=== PATIENT | female | born 1960 | race Caucasian/White ===

== ENCOUNTER 2017-06-17 15:45 | Emergency (ER) | payer OTHER ==
[2017-06-17 16:12] VITALS: RESP 22; TEMP 98.6
[2017-06-17] MEDS ORDERED: KETOROLAC TROMETHAMINE 30 MG/ML SOL IM ONE (17:24)
[2017-06-17] MEDS ORDERED: KETOROLAC TROMETHAMINE 30 MG/ML SOL ONE (17:26)
[2017-06-17 18:12] VITALS: BP 122/81; PULSE 74; O2SAT 98
== END 2017-06-17 18:08 | disposition home or self-care (01) | DRG 948 ==
LOC: ED 15:45
DX: R60.9 Edema, unspecified (principal); Z86.79 Personal history of other diseases of the circulatory system
CPT/HCPCS: 71010; 96372; 99282; 99283; J1885

== ENCOUNTER 2017-07-02 18:22 | Inpatient (IN) | payer OTHER ==
[2017-07-02] MEDS ORDERED: LABETALOL HYDROCHLORIDE 5 MG/ML SOL IV ONE ×2 (18:44→18:49)
[2017-07-02] MEDS ORDERED: KETOROLAC TROMETHAMINE 30 MG/ML SOL IV ONE (18:44)
[2017-07-02] MEDS ORDERED: KETOROLAC TROMETHAMINE 30 MG/ML SOL ONE (18:48)
[2017-07-02 18:49] LABS: BASOPHILS % (AUTO) 1 % (0-3); EOSINOPHILS % (AUTO) 0 % (0-9); HEMATOCRIT 38 % (35-47); MEAN CORPUSCULAR HGB CONC 33.8 gm/dl (32.0-36.0); MONOCYTES % (AUTO) 6.5 % (0-12); NEUTROPHILS % (AUTO) 86.4 % (37-80)
[2017-07-02 18:50] LABS: MEAN CORPUSCULAR VOLUME 99 fL (81-99)
[2017-07-02] MEDS ORDERED: APAP/HYDROCODONE 325/5 TAB PO ONE (18:55)
[2017-07-02 18:56] LABS: CALCIUM 8.9 mg/dl (8.5-10.1); POTASSIUM 3.6 mMol/L (3.5-5.1)
[2017-07-02] MEDS ORDERED: ONDANSETRON HCL 4 MG/2 ML SOL ONE (19:00)
[2017-07-02] MEDS ORDERED: APAP/HYDROCODONE 325/5 TAB ONE (19:00)
[2017-07-02] MEDS ORDERED: SODIUM CHLORIDE 0.9% 1000 ML SOL IV SCH (19:00)
[2017-07-02] MEDS ORDERED: ONDANSETRON HCL 4 MG/2 ML SOL IV ONE (19:04)
[2017-07-02 19:18] LABS: APPEARANCE,URINE Cloudy; BILIRUBIN,URINE NEGATIVE (NEGATIVE); COLOR,URINE Dark yellow; GLUCOSE, URINE (UA) NEGATIVE (NEGATIVE); KETONES,URINE NEGATIVE (NEGATIVE); LEUKOCYTE ESTERASE ,URINE 3+ (NEGATIVE); NITRATE,URINE POSITIVE (NEGATIVE); OCCULT BLOOD,URINE 3+ (NEG-TRACE); PH,URINE 5.5
[2017-07-02] MEDS ORDERED: CEFTRIAXONE 1 GM (PREMIX) 1 GM/50 ML SOL IV ONE ×2 (19:25→19:26)
[2017-07-02 19:27] LABS: WBC,URINE TNTC (0-5AV/HPF)
[2017-07-02] MEDS ORDERED: ACETAMINOPHEN 500 MG 500 MG TAB PO PRN (20:36)
[2017-07-02] MEDS ORDERED: [UNRECOGNIZED DRUG - OTHER] PO PRN (20:36)
[2017-07-02] MEDS ORDERED: ACETAMINOPHEN PO PRN (20:36)
[2017-07-02] MEDS ORDERED: CYCLOBENZAPRINE HYDROCHLORID 5 MG TAB PO PRN (20:36)
[2017-07-02] MEDS ORDERED: OXYCODONE HCL PO PRN (20:36)
[2017-07-02] MEDS ORDERED: HYDROMORPHONE 1 MG/ML SYRINGE ONE (21:12)
[2017-07-02] MEDS: HYDROMORPHONE 1 MG/ML SYRINGE IV PRN (21:15)
[2017-07-02] MEDS: POTASSIUM CHLORIDE 10 MEQ TER PO SCH (22:25)
[2017-07-02] MEDS: LIPASE PO SCH (22:25)
[2017-07-02] MEDS: Non-Formulary Medication MISC (Budesonide/Formoterol 160/4.5 2 PUFF) INH SCH (22:25)
[2017-07-02] MEDS: PROTEASE PO SCH (22:25)
[2017-07-02] MEDS: GABAPENTIN 300 MG CAP PO SCH (22:25)
[2017-07-02] MEDS: AMYLASE PO SCH (22:25)
[2017-07-02] MEDS: SODIUM CHLORIDE/KCL 20MEQ 1,000 ML IV SCH (22:25)
[2017-07-02] MEDS ORDERED: NICOTINE 21 MG PATCH TD SCH (22:30)
[2017-07-02] MEDS: APAP/OXYCODONE 325/5 TAB PO PRN (23:55)
[2017-07-03] MEDS: HYDROMORPHONE 1 MG/ML SYRINGE IV PRN ×2 (02:59→10:03)
[2017-07-03] MEDS: SODIUM CHLORIDE/KCL 20MEQ 1,000 ML IV SCH (03:05)
[2017-07-03] MEDS ORDERED: OMEPRAZOLE 20 MG CAPSULE PO SCH (07:00)
[2017-07-03] MEDS ORDERED: SODIUM CHLORIDE 0.9% 1000ML 1,000 ML IV ONE (07:18)
[2017-07-03] MEDS: PANTOPRAZOLE SODIUM 40 MG ECT PO SCH (07:20)
[2017-07-03] MEDS: APAP/OXYCODONE 325/5 TAB PO PRN ×3 (07:57→20:23)
[2017-07-03] MEDS: Non-Formulary Medication MISC (Budesonide/Formoterol 160/4.5 2 PUFF) INH SCH (08:15)
[2017-07-03] MEDS: TIOTROPIUM BROMIDE 18 MCG CAP INH SCH (08:16)
[2017-07-03] MEDS: LORATADINE 10 MG TAB PO SCH (08:21)
[2017-07-03] MEDS: POTASSIUM CHLORIDE 10 MEQ TER PO SCH ×2 (08:21→20:21)
[2017-07-03] MEDS: FUROSEMIDE 20 MG TAB PO SCH (08:21)
[2017-07-03] MEDS: ASPIRIN 81 MG CHEWABLE CTB PO SCH (08:21)
[2017-07-03] MEDS: GABAPENTIN 300 MG CAP PO SCH ×3 (08:21→20:22)
[2017-07-03] MEDS: LISINOPRIL 20 MG TAB PO SCH (08:22)
[2017-07-03] MEDS: LIPASE PO SCH ×4 (08:25→20:27)
[2017-07-03] MEDS: AMYLASE PO SCH ×4 (08:25→20:27)
[2017-07-03] MEDS: MONTELUKAST SODIUM 5 MG CTB PO SCH (08:25)
[2017-07-03] MEDS: PROTEASE PO SCH ×4 (08:25→20:27)
[2017-07-03 08:59] LABS: CALCIUM 7.9 mg/dl (8.5-10.1); POTASSIUM 4.5 mMol/L (3.5-5.1)
[2017-07-03 09:02] LABS: HEMATOCRIT 34 % (35-47); MEAN CORPUSCULAR HGB CONC 33.5 gm/dl (32.0-36.0)
[2017-07-03 09:04] LABS: MEAN CORPUSCULAR VOLUME 100 fL (81-99)
[2017-07-03] MEDS ORDERED: FUROSEMIDE 40 MG SOL IV SCH (09:15)
[2017-07-03 09:16] LABS: ANISOCYTOSIS SLIGHT AMT; BASOPHILS % (MANUAL) 0 % (0-3); EOSINOPHILS % (MANUAL) 0 % (0-9); LYMPHOCYTES % (MANUAL) 10 % (10-50); PLATELET MORPHOLOGY COMMENT ADEQUATE
[2017-07-03] MEDS ORDERED: ALBUTEROL/IPRATROPIUM 1 VIAL SOL INH PRN (09:16)
[2017-07-03] MEDS: BUDESONIDE/FORMOTEROL 160/4.5 AER INH SCH ×2 (09:49→20:27)
[2017-07-03] MEDS: SODIUM CHLORIDE 0.9% FLUSH 10 ML SOL IV SCH ×3 (09:50→18:03)
[2017-07-03 16:28] VITALS: RESP 22
[2017-07-03] MEDS ORDERED: SODIUM CHLORIDE 0.9% 100 ML 100 ML IV ONE (17:36)
[2017-07-03] MEDS ORDERED: CEFTRIAXONE 1 GM PDS ONE (17:36)
[2017-07-03] MEDS ORDERED: CEFTRIAXONE 1 GM PDS 1 GM in SODIUM CHLORIDE 0.9% 100 ML 100 ML IV SCH (19:00)
[2017-07-03] MEDS ORDERED: NICOTINE 21 MG PATCH TD SCH (21:00)
[2017-07-04] MEDS: SODIUM CHLORIDE 0.9% FLUSH 10 ML SOL IV SCH ×2 (03:30→10:31)
[2017-07-04] MEDS: APAP/OXYCODONE 325/5 TAB PO PRN (04:12)
[2017-07-04 07:24] LABS: CALCIUM 8.3 mg/dl (8.5-10.1); POTASSIUM 4.6 mMol/L (3.5-5.1)
[2017-07-04 07:26] LABS: HEMATOCRIT 32 % (35-47); MEAN CORPUSCULAR HGB CONC 35.3 gm/dl (32.0-36.0)
[2017-07-04 07:28] LABS: MEAN CORPUSCULAR VOLUME 100 fL (81-99)
[2017-07-04] MEDS: PANTOPRAZOLE SODIUM 40 MG ECT PO SCH (07:36)
[2017-07-04 07:53] LABS: BASOPHILS % (MANUAL) 0 % (0-3); EOSINOPHILS % (MANUAL) 3 % (0-9); LYMPHOCYTES % (MANUAL) 17 % (10-50); NORMAL RBCS NORMAL RBCS
[2017-07-04 08:01] VITALS: BP 130/88; PULSE 74; TEMP 97.5; O2SAT 95
[2017-07-04] MEDS ORDERED: KETOROLAC TROMETHAMINE 30 MG/ML SOL IV ONE (08:13)
[2017-07-04] MEDS: ASPIRIN 81 MG CHEWABLE CTB PO SCH (08:31)
[2017-07-04] MEDS: LORATADINE 10 MG TAB PO SCH (08:31)
[2017-07-04] MEDS: FUROSEMIDE 20 MG TAB PO SCH (08:31)
[2017-07-04] MEDS: POTASSIUM CHLORIDE 10 MEQ TER PO SCH (08:31)
[2017-07-04] MEDS: GABAPENTIN 300 MG CAP PO SCH (08:32)
[2017-07-04] MEDS: TIOTROPIUM BROMIDE 18 MCG CAP INH SCH (08:32)
[2017-07-04] MEDS: BUDESONIDE/FORMOTEROL 160/4.5 AER INH SCH (08:33)
[2017-07-04] MEDS: LISINOPRIL 20 MG TAB PO SCH (08:34)
[2017-07-04] MEDS: AMYLASE PO SCH (08:39)
[2017-07-04] MEDS: LIPASE PO SCH (08:39)
[2017-07-04] MEDS: PROTEASE PO SCH (08:39)
[2017-07-04] MEDS: MONTELUKAST SODIUM 5 MG CTB PO SCH (08:54)
== END 2017-07-04 11:05 | disposition home or self-care (01) | DRG 690 ==
LOC: ED 18:22 → ACUTE CARE 20:28
PROVIDERS: ADMIT Family Medicine; ATTEND Family Medicine
DX: N10 Acute pyelonephritis (principal); I50.40 Unspecified combined systolic (congestive) and diastolic (congestive) heart failure; J43.1 Panlobular emphysema
CPT/HCPCS: 36415; 71010; 80048; 81001; 85007; 85025; 85027; 87077; 87088; 87186; 93005; 94640; 96365; 96374; 96375; 99070; 99222; 99231; 99238; 99284; 99285; J0696; J1885; J1940; J2405; J7620; J1170

== ENCOUNTER 2017-08-22 15:56 | Emergency (ER) | payer OTHER ==
[2017-08-22 16:09] VITALS: RESP 20; TEMP 98.2
[2017-08-22] MEDS ORDERED: LORAZEPAM 0.5 MG TAB PO ONE (17:05)
[2017-08-22] MEDS ORDERED: THIAMINE 100 MG TAB PO ONE (17:07)
[2017-08-22] MEDS ORDERED: THIAMINE 100 MG TAB ONE (17:09)
[2017-08-22] MEDS ORDERED: LORAZEPAM 0.5 MG TAB ONE (17:09)
[2017-08-22] MEDS ORDERED: LOPERAMIDE HYDROCHLORIDE 2 MG CAP PO ONE (17:25)
[2017-08-22] MEDS ORDERED: LOPERAMIDE HYDROCHLORIDE 2 MG CAP ONE (17:26)
[2017-08-22 17:35] VITALS: BP 153/96; PULSE 78; O2SAT 99
== END 2017-08-22 17:35 | disposition home or self-care (01) | DRG 897 ==
LOC: ED 15:56
DX: F10.280 Alcohol dependence with alcohol-induced anxiety disorder (principal)
CPT/HCPCS: 99283

== ENCOUNTER 2017-12-26 05:12 | Inpatient (IN) | payer OTHER ==
[2017-12-26] MEDS ORDERED: SODIUM CHLORIDE 0.9% 1000ML 1,000 ML IV ONE (05:24)
[2017-12-26] MEDS ORDERED: ONDANSETRON HCL 4 MG/2 ML SOL IV ONE (05:25)
[2017-12-26] MEDS ORDERED: HYDROMORPHONE 1 MG/ML SYRINGE IV ONE (05:26)
[2017-12-26] MEDS ORDERED: HYDROMORPHONE 1 MG/ML SYRINGE ONE (05:28)
[2017-12-26] MEDS ORDERED: ONDANSETRON HCL 4 MG/2 ML SOL ONE (05:28)
[2017-12-26] MEDS ORDERED: THIAMINE 100 MG/ML 100 MG/ML SOL IV ONE (05:33)
[2017-12-26] MEDS ORDERED: FOLIC ACID 1 MG TAB PO ONE (05:33)
[2017-12-26] MEDS ORDERED: FOLIC ACID 1 MG TAB ONE (05:44)
[2017-12-26] MEDS ORDERED: THIAMINE 100 MG/ML 100 MG/ML SOL ONE (05:44)
[2017-12-26] MEDS ORDERED: ALBUTEROL/IPRATROPIUM 1 VIAL SOL INH ONE (05:47)
[2017-12-26] MEDS ORDERED: ALBUTEROL/IPRATROPIUM 1 VIAL SOL ONE (05:48)
[2017-12-26 05:49] LABS: BASOPHILS % (AUTO) 2 % (0-3); EOSINOPHILS % (AUTO) 2 % (0-9); HEMATOCRIT 39 % (35-47); MEAN CORPUSCULAR HGB CONC 33.7 gm/dl (32.0-36.0); MONOCYTES % (AUTO) 5.4 % (0-12); NEUTROPHILS % (AUTO) 53.9 % (37-80)
[2017-12-26] MEDS ORDERED: LORAZEPAM 2 MG/ML 10ML MDV 2 MG/ML VIAL IV ONE (05:51)
[2017-12-26] MEDS ORDERED: LORAZEPAM 2 MG/ML SOL ONE (05:51)
[2017-12-26 05:54] LABS: MEAN CORPUSCULAR VOLUME 99 fL (81-99)
[2017-12-26] MEDS: SODIUM CHLORIDE 0.9% FLUSH 10 ML SOL IV PRN ×2 (05:54→11:53)
[2017-12-26 05:59] LABS: ALBUMIN 3.4 gm/dl (3.4-5.0); CALCIUM 8.1 mg/dl (8.5-10.1); MAGNESIUM 1.5 mg/dl (1.8-2.4); POTASSIUM 4.2 mMol/L (3.5-5.1)
[2017-12-26] MEDS ORDERED: MAGNESIUM SULFATE 1 GM/2 ML SOL IV ONE (06:09)
[2017-12-26] MEDS ORDERED: MAGNESIUM SULFATE 5 GM/10 ML SOL ONE (06:15)
[2017-12-26] MEDS ORDERED: MAGNESIUM SULFATE 5 GM/10 ML SOL IV ONE (06:23)
[2017-12-26] MEDS ORDERED: SODIUM CHLORIDE 0.9% 1000ML 1,000 ML IV SCH (07:00)
[2017-12-26] MEDS ORDERED: CYCLOBENZAPRINE HYDROCHLORID 5 MG TAB PO PRN (08:18)
[2017-12-26] MEDS ORDERED: HYDROMORPHONE 1 MG/ML SYRINGE IV PRN (08:19)
[2017-12-26] MEDS ORDERED: ONDANSETRON HCL 4 MG/2 ML SOL IV PRN (08:20)
[2017-12-26] MEDS ORDERED: HYDROMORPHONE HCL 2 MG/ML SOL ONE (08:51)
[2017-12-26] MEDS ORDERED: Non-Formulary Medication MISC (Budesonide/Formoterol 160/4.5 2 PUFF) INH SCH (09:00)
[2017-12-26] MEDS ORDERED: LIPASE PO SCH (09:00)
[2017-12-26] MEDS ORDERED: VARENICLINE TARTRATE 1 MG PO SCH (09:00)
[2017-12-26] MEDS ORDERED: AMYLASE PO SCH (09:00)
[2017-12-26] MEDS ORDERED: THIAMINE HCL 100 MG PO SCH (09:00)
[2017-12-26] MEDS ORDERED: PROTEASE PO SCH (09:00)
[2017-12-26] MEDS ORDERED: VITAMIN D PO SCH (09:00)
[2017-12-26] MEDS ORDERED: CALCIUM PO SCH (09:00)
[2017-12-26] MEDS ORDERED: TIOTROPIUM BROMIDE 18 MCG CAP INH SCH (09:00)
[2017-12-26] MEDS ORDERED: MONTELUKAST SODIUM 10 MG TAB PO SCH (09:00)
[2017-12-26] MEDS ORDERED: PROMETHAZINE 25 MG PO SCH (09:00)
[2017-12-26] MEDS: LISINOPRIL 20 MG TAB PO SCH (10:24)
[2017-12-26] MEDS: ASPIRIN EC 81 MG PO SCH (10:24)
[2017-12-26] MEDS: SODIUM CHLORIDE 0.9% 1000ML 1,000 ML IV SCH ×2 (10:25→19:07)
[2017-12-26] MEDS: METOPROLOL TARTRATE 50 MG TAB PO SCH (10:25)
[2017-12-26] MEDS: ENOXAPARIN 40 MG SOL SC SCH (10:26)
[2017-12-26] MEDS: HYDROMORPHONE HCL 2 MG/ML SOL IV PRN ×3 (11:30→21:31)
[2017-12-26] MEDS ORDERED: LORAZEPAM 2 MG/ML SOL IV PRN (11:36)
[2017-12-26] MEDS: GABAPENTIN 300 MG CAP PO SCH ×2 (12:17→21:18)
[2017-12-26] MEDS: SODIUM CHLORIDE 0.9% FLUSH 10 ML SOL IV SCH ×2 (13:15→19:08)
[2017-12-26] MEDS: FOLIC ACID 1 MG TAB PO SCH (13:15)
[2017-12-26] MEDS: BUDESONIDE/FORMOTEROL 160/4.5 AER INH SCH (21:17)
[2017-12-26] MEDS: CALCIUM CARBONATE 500 MG TAB PO SCH (21:18)
[2017-12-27] MEDS: HYDROMORPHONE HCL 2 MG/ML SOL IV PRN ×4 (01:01→14:13)
[2017-12-27] MEDS: SODIUM CHLORIDE 0.9% FLUSH 10 ML SOL IV SCH ×3 (03:13→19:16)
[2017-12-27] MEDS: SODIUM CHLORIDE 0.9% 1000ML 1,000 ML IV SCH (05:07)
[2017-12-27] MEDS ORDERED: SODIUM CHLORIDE 0.9% 1000ML 1,000 ML IV SCH (07:53)
[2017-12-27 08:02] LABS: BASOPHILS % (AUTO) 1 % (0-3); EOSINOPHILS % (AUTO) 3 % (0-9); HEMATOCRIT 34 % (35-47); MEAN CORPUSCULAR HGB CONC 34.1 gm/dl (32.0-36.0)
[2017-12-27 08:04] LABS: MEAN CORPUSCULAR VOLUME 101 fL (81-99)
[2017-12-27 08:07] LABS: ALBUMIN 2.9 gm/dl (3.4-5.0); POTASSIUM 4.5 mMol/L (3.5-5.1)
[2017-12-27] MEDS: DEXTROSE/SALINE 0.45/KCL 20MEQ 1,000 ML/1,000 ML SOL IV SCH ×2 (08:15→19:11)
[2017-12-27] MEDS: ALBUTEROL NEB SOL 2.5MG/3ML 1 VIAL SOL NEB PRN ×3 (08:20→20:25)
[2017-12-27 08:26] LABS: NORMAL RBCS PRESENT
[2017-12-27] MEDS ORDERED: OMEPRAZOLE 20 MG CAPSULE PO SCH (09:00)
[2017-12-27] MEDS: CALCIUM CARBONATE 500 MG TAB PO SCH ×2 (09:14→21:02)
[2017-12-27] MEDS: GABAPENTIN 300 MG CAP PO SCH ×3 (09:14→21:02)
[2017-12-27] MEDS: ASPIRIN EC 81 MG PO SCH (09:15)
[2017-12-27] MEDS: FOLIC ACID 1 MG TAB PO SCH (09:15)
[2017-12-27] MEDS: BUDESONIDE/FORMOTEROL 160/4.5 AER INH SCH ×2 (09:17→21:02)
[2017-12-27] MEDS: METOPROLOL TARTRATE 50 MG TAB PO SCH (09:19)
[2017-12-27] MEDS: ENOXAPARIN 40 MG SOL SC SCH (09:19)
[2017-12-27] MEDS: PANTOPRAZOLE SODIUM 40 MG ECT PO SCH (09:23)
[2017-12-27] MEDS: CHOLECALCIFEROL 1,000 IU TAB PO SCH (09:24)
[2017-12-27] MEDS: THIAMINE 100 MG TAB PO SCH (09:24)
[2017-12-27] MEDS: PROMETHAZINE HCL 6.25 MG/5 ML SYRP PO SCH (09:25)
[2017-12-27] MEDS ORDERED: LORAZEPAM 0.5 MG TAB PO PRN (19:00)
[2017-12-27] MEDS ORDERED: ACETAMINOPHEN 325 MG PO PRN (20:57)
[2017-12-27] MEDS: NICOTINE 7 MG PATCH TD SCH (21:07)
[2017-12-27 23:04] LABS: BASOPHILS % (AUTO) 1 % (0-3); EOSINOPHILS % (AUTO) 4 % (0-9); HEMATOCRIT 33 % (35-47); MEAN CORPUSCULAR HGB CONC 33.2 gm/dl (32.0-36.0); MONOCYTES % (AUTO) 5.6 % (0-12); NEUTROPHILS % (AUTO) 64.1 % (37-80)
[2017-12-27 23:05] LABS: MEAN CORPUSCULAR VOLUME 101 fL (81-99)
[2017-12-27 23:07] LABS: CALCIUM 8.2 mg/dl (8.5-10.1); GLOM FILT RATE 63 mL/min (>60); POTASSIUM 4.2 mMol/L (3.5-5.1); SODIUM 134 mMol/L (136-145)
[2017-12-27] MEDS: ALBUTEROL/IPRATROPIUM 1 VIAL SOL INH PRN (23:37)
[2017-12-28] MEDS: ALBUTEROL/IPRATROPIUM 1 VIAL SOL INH PRN ×2 (03:42→08:37)
[2017-12-28] MEDS: DEXTROSE/SALINE 0.45/KCL 20MEQ 1,000 ML/1,000 ML SOL IV SCH (05:21)
[2017-12-28] MEDS: SODIUM CHLORIDE 0.9% FLUSH 10 ML SOL IV SCH ×3 (05:32→20:01)
[2017-12-28 07:04] LABS: BASOPHILS % (AUTO) 2 % (0-3); EOSINOPHILS % (AUTO) 4 % (0-9); HEMATOCRIT 32 % (35-47); MONOCYTES % (AUTO) 4.8 % (0-12); NEUTROPHILS % (AUTO) 56.7 % (37-80)
[2017-12-28 07:27] LABS: MEAN CORPUSCULAR VOLUME 99 fL (81-99); NORMAL RBCS PRESENT
[2017-12-28 07:29] LABS: ALBUMIN 2.6 gm/dl (3.4-5.0); ALT 13 IU/L (14-63); CALCIUM 8.3 mg/dl (8.5-10.1); GLOM FILT RATE 78 mL/min (>60); MAGNESIUM 1.4 mg/dl (1.8-2.4); SODIUM 136 mMol/L (136-145)
[2017-12-28] MEDS: GABAPENTIN 300 MG CAP PO SCH ×3 (08:20→20:03)
[2017-12-28] MEDS: THIAMINE 100 MG TAB PO SCH (08:20)
[2017-12-28] MEDS: PANTOPRAZOLE SODIUM 40 MG ECT PO SCH (08:21)
[2017-12-28] MEDS: ASPIRIN EC 81 MG PO SCH (08:21)
[2017-12-28] MEDS: CHOLECALCIFEROL 1,000 IU TAB PO SCH (08:21)
[2017-12-28] MEDS: FOLIC ACID 1 MG TAB PO SCH (08:21)
[2017-12-28] MEDS: CALCIUM CARBONATE 500 MG TAB PO SCH ×2 (08:21→20:03)
[2017-12-28] MEDS: PROMETHAZINE HCL 6.25 MG/5 ML SYRP PO SCH (08:22)
[2017-12-28] MEDS: BUDESONIDE/FORMOTEROL 160/4.5 AER INH SCH ×2 (08:22→20:03)
[2017-12-28] MEDS: ENOXAPARIN 40 MG SOL SC SCH (08:26)
[2017-12-28] MEDS: METOPROLOL TARTRATE 50 MG TAB PO SCH (08:26)
[2017-12-28] MEDS: APAP/OXYCODONE 325/5 TAB PO PRN ×3 (09:17→21:10)
[2017-12-28] MEDS: MAGNESIUM OXIDE 400 MG TAB PO SCH ×4 (09:18→20:05)
[2017-12-28 09:42] LABS: APPEARANCE,URINE Cloudy; BILIRUBIN,URINE NEGATIVE (NEGATIVE); COLOR,URINE Yellow; GLUCOSE, URINE (UA) NEGATIVE (NEGATIVE); KETONES,URINE NEGATIVE (NEGATIVE); LEUKOCYTE ESTERASE ,URINE 3+ (NEGATIVE); NITRATE,URINE POSITIVE (NEGATIVE); OCCULT BLOOD,URINE 3+ (NEG-TRACE)
[2017-12-28 10:05] LABS: WBC,URINE 25-30 (0-5AV/HPF)
[2017-12-28] MEDS ORDERED: SULFAMETHOXAZOLE/TRIMETHOPRI 800/160 MG PO SCH (11:00)
[2017-12-28] MEDS: SULFAMETHOXAZOLE/TRIMETHOPRI 800/160 MG PO SCH (20:02)
[2017-12-28] MEDS: NICOTINE 7 MG PATCH TD SCH (20:03)
[2017-12-29] MEDS: SODIUM CHLORIDE 0.9% FLUSH 10 ML SOL IV SCH ×3 (01:30→20:42)
[2017-12-29] MEDS: APAP/OXYCODONE 325/5 TAB PO PRN ×4 (02:19→20:41)
[2017-12-29 07:33] LABS: BASOPHILS % (AUTO) 1 % (0-3); EOSINOPHILS % (AUTO) 4 % (0-9); HEMATOCRIT 33 % (35-47); MEAN CORPUSCULAR HGB CONC 34.7 gm/dl (32.0-36.0); MONOCYTES % (AUTO) 6.3 % (0-12); NEUTROPHILS % (AUTO) 46.7 % (37-80)
[2017-12-29 07:38] LABS: ALBUMIN 2.7 gm/dl (3.4-5.0); CALCIUM 8.1 mg/dl (8.5-10.1); MAGNESIUM 1.3 mg/dl (1.8-2.4); POTASSIUM 4.6 mMol/L (3.5-5.1)
[2017-12-29 07:53] LABS: MEAN CORPUSCULAR VOLUME 101 fL (81-99)
[2017-12-29 07:54] LABS: ANISOCYTOSIS SLIGHT AMT
[2017-12-29] MEDS: ASPIRIN EC 81 MG PO SCH (08:41)
[2017-12-29] MEDS: SULFAMETHOXAZOLE/TRIMETHOPRI 800/160 MG PO SCH ×2 (08:43→20:42)
[2017-12-29] MEDS: FOLIC ACID 1 MG TAB PO SCH (08:43)
[2017-12-29] MEDS: GABAPENTIN 300 MG CAP PO SCH ×3 (08:45→20:41)
[2017-12-29] MEDS: CALCIUM CARBONATE 500 MG TAB PO SCH ×2 (08:45→20:42)
[2017-12-29] MEDS: PROMETHAZINE HCL 6.25 MG/5 ML SYRP PO SCH (08:46)
[2017-12-29] MEDS: PANTOPRAZOLE SODIUM 40 MG ECT PO SCH (08:49)
[2017-12-29] MEDS: BUDESONIDE/FORMOTEROL 160/4.5 AER INH SCH ×2 (08:49→20:43)
[2017-12-29] MEDS: THIAMINE 100 MG TAB PO SCH (08:50)
[2017-12-29] MEDS: CHOLECALCIFEROL 1,000 IU TAB PO SCH (08:50)
[2017-12-29] MEDS: ENOXAPARIN 40 MG SOL SC SCH (09:03)
[2017-12-29] MEDS: METOPROLOL TARTRATE 50 MG TAB PO SCH (09:03)
[2017-12-29] MEDS: MAGNESIUM OXIDE 400 MG TAB PO SCH ×4 (11:14→20:49)
[2017-12-29] MEDS: NICOTINE 7 MG PATCH TD SCH (20:42)
[2017-12-30] MEDS ORDERED: ALUMINUM/MAGNESIUM 30 ML SUS PO ONE (01:45)
[2017-12-30] MEDS: APAP/OXYCODONE 325/5 TAB PO PRN ×2 (03:38→10:03)
[2017-12-30 03:47] VITALS: O2SAT 95
[2017-12-30] MEDS: SODIUM CHLORIDE 0.9% FLUSH 10 ML SOL IV SCH (03:50)
[2017-12-30 07:10] LABS: BASOPHILS % (AUTO) 1 % (0-3); EOSINOPHILS % (AUTO) 4 % (0-9); HEMATOCRIT 31 % (35-47); MEAN CORPUSCULAR HGB CONC 33.6 gm/dl (32.0-36.0); MONOCYTES % (AUTO) 6.5 % (0-12); NEUTROPHILS % (AUTO) 57.5 % (37-80)
[2017-12-30 07:14] LABS: MEAN CORPUSCULAR VOLUME 100 fL (81-99)
[2017-12-30 07:22] LABS: ALBUMIN 2.6 gm/dl (3.4-5.0); CALCIUM 8.4 mg/dl (8.5-10.1); POTASSIUM 4.5 mMol/L (3.5-5.1)
[2017-12-30] MEDS: FOLIC ACID 1 MG TAB PO SCH (09:09)
[2017-12-30] MEDS: SULFAMETHOXAZOLE/TRIMETHOPRI 800/160 MG PO SCH (09:09)
[2017-12-30] MEDS: ASPIRIN EC 81 MG PO SCH (09:09)
[2017-12-30] MEDS: METOPROLOL TARTRATE 50 MG TAB PO SCH (09:10)
[2017-12-30] MEDS: GABAPENTIN 300 MG CAP PO SCH (09:12)
[2017-12-30] MEDS: PROMETHAZINE HCL 6.25 MG/5 ML SYRP PO SCH (09:13)
[2017-12-30] MEDS: CALCIUM CARBONATE 500 MG TAB PO SCH (09:13)
[2017-12-30] MEDS: PANTOPRAZOLE SODIUM 40 MG ECT PO SCH (09:16)
[2017-12-30] MEDS: BUDESONIDE/FORMOTEROL 160/4.5 AER INH SCH (09:17)
[2017-12-30] MEDS: CHOLECALCIFEROL 1,000 IU TAB PO SCH (09:17)
[2017-12-30] MEDS: THIAMINE 100 MG TAB PO SCH (09:17)
[2017-12-30] MEDS: LISINOPRIL 20 MG TAB PO SCH (09:21)
[2017-12-30] MEDS: ENOXAPARIN 40 MG SOL SC SCH (09:24)
[2017-12-30 11:35] VITALS: BP 174/104; PULSE 64; RESP 16; TEMP 97.8
== END 2017-12-30 11:35 | disposition home or self-care (01) | DRG 439 ==
LOC: ED 05:12 → ACUTE CARE 07:55
PROVIDERS: ADMIT Family Medicine; ATTEND Family Medicine
DX: K85.20 Alcohol induced acute pancreatitis without necrosis or infection (principal); F10.239 Alcohol dependence with withdrawal, unspecified; I11.0 Hypertensive heart disease with heart failure; I50.40 Unspecified combined systolic (congestive) and diastolic (congestive) heart failure; E83.42 Hypomagnesemia; J43.1 Panlobular emphysema; Y90.8 Blood alcohol level of 240 mg/100 ml or more; Z72.0 Tobacco use
CPT/HCPCS: 36415; 71045; 74177; 80048; 80053; 80307; 81001; 82150; 82550; 83735; 83880; 84100; 84484; 85025; 87077; 87088; 87186; 93005; 93012; 94150; 94640; 94664; 94762; 96365; 96366; 96374; 96375; 99221; 99285; J1170; J1650; J2060; J2405; J3475; J7603; J7620; Q9967; A9270-GY; J3411

== ENCOUNTER 2018-03-07 20:00 | Emergency (ER) | payer OTHER ==
[2018-03-07 20:21] VITALS: PULSE 75
[2018-03-07 20:29] VITALS: BP 158/109; RESP 21; TEMP 97; O2SAT 99
[2018-03-07] MEDS ORDERED: NAPROXEN 500 MG TAB PO ONE (20:37)
[2018-03-07] MEDS ORDERED: NAPROXEN 500 MG TAB ONE (20:40)
== END 2018-03-07 20:42 | disposition home or self-care (01) | DRG 159 ==
LOC: ED 20:00
DX: K03.81 Cracked tooth (principal)
CPT/HCPCS: 99282; A9270-GY

== ENCOUNTER 2018-05-02 11:15 | Emergency (ER) | payer OTHER ==
[2018-05-02] MEDS ORDERED: THIAMINE 100 MG TAB PO ONE (11:26)
[2018-05-02 11:28] VITALS: TEMP 98
[2018-05-02] MEDS ORDERED: SODIUM CHLORIDE 0.9% 1000ML 1,000 ML IV SCH (11:30)
[2018-05-02] MEDS ORDERED: THIAMINE 100 MG/ML 100 MG/ML SOL IV ONE (11:34)
[2018-05-02] MEDS ORDERED: THIAMINE 100 MG/ML 100 MG/ML SOL ONE (11:34)
[2018-05-02] MEDS ORDERED: ONDANSETRON HCL 4 MG/2 ML SOL IV ONE (11:41)
[2018-05-02] MEDS ORDERED: ALUMINUM/MAGNESIUM 30 ML SUS PO ONE (11:42)
[2018-05-02] MEDS ORDERED: PANTOPRAZOLE SODIUM 40 MG/10 ML PDS IV ONE (11:42)
[2018-05-02] MEDS ORDERED: FENTANYL 100MCG/2ML SOL IV ONE (11:43)
[2018-05-02 11:47] LABS: BASOPHILS % (AUTO) 2 % (0-3); EOSINOPHILS % (AUTO) 3 % (0-9); HEMATOCRIT 39 % (35-47); HEMOGLOBIN 13.2 gm/dl (12.0-15.5); MEAN CORPUSCULAR HEMOGLOBIN 33.4 pg (27.0-32.0); MEAN CORPUSCULAR HGB CONC 33.7 gm/dl (32.0-36.0); NEUTROPHILS % (AUTO) 42.8 % (37-80)
[2018-05-02 11:48] LABS: MEAN CORPUSCULAR VOLUME 99 fL (81-99)
[2018-05-02] MEDS ORDERED: FENTANYL 100MCG/2ML SOL ONE (11:48)
[2018-05-02] MEDS ORDERED: ALUMINUM/MAGNESIUM 30 ML SUS ONE (11:48)
[2018-05-02] MEDS ORDERED: PANTOPRAZOLE SODIUM 40 MG/10 ML PDS ONE (11:48)
[2018-05-02] MEDS ORDERED: ONDANSETRON HCL 4 MG/2 ML SOL ONE (11:48)
[2018-05-02 11:53] LABS: BILIRUBIN,TOTAL 0.9 mg/dl (0.2-1.0); BLOOD UREA NITROGEN 18 mg/dl (7-18); CALCIUM 8.5 mg/dl (8.5-10.1); CARBON DIOXIDE 23.7 mEq/L (21-32); CHLORIDE 104 mMol/L (98-107); CREATININE 1.09 mg/dl (0.60-1.00); GLOM FILT RATE 52 mL/min (>60); GLUCOSE 93 mg/dl (74-106); POTASSIUM 3.9 mMol/L (3.5-5.1); SODIUM 140 mMol/L (136-145)
[2018-05-02 11:54] LABS: ALBUMIN 3.1 gm/dl (3.4-5.0); ALKALINE PHOSPHATASE 76 IU/L (46-116); ALT 32 IU/L (14-63); AST 44 IU/L (15-37); BILIRUBIN,DIRECT 0.3 mg/dl (0.0-0.2); TOTAL PROTEIN 6.7 gm/dl (6.4-8.2); TROP I < 0.017 ng/ml (0.000-0.056)
[2018-05-02 12:59] LABS: APPEARANCE,URINE Slightly Cloudy; BILIRUBIN,URINE NEGATIVE (NEGATIVE); COLOR,URINE Dark yellow; GLUCOSE, URINE (UA) NEGATIVE (NEGATIVE); KETONES,URINE 1+ (NEGATIVE); LEUKOCYTE ESTERASE ,URINE NEGATIVE (NEGATIVE); NITRATE,URINE NEGATIVE (NEGATIVE); OCCULT BLOOD,URINE 2+ (NEG-TRACE); PH,URINE 5.5; UROBILINOGEN,URINE 0.2 (0.2-1.0 EU)
[2018-05-02 13:14] LABS: AMPHETAMINES NEGATIVE (NEGATIVE); BACTERIA 2+ (< 1+); BARBITUATES NEGATIVE (NEGATIVE); BENZODIAZEPINES NEGATIVE (NEGATIVE); CANNABINOL(THC) POSITIVE (NEGATIVE); COCAINE(COC) NEGATIVE (NEGATIVE); CRYSTALS NEGATIVE (0-3 AVE/HPF); METHADONE NEGATIVE (NEGATIVE); METHAMPHETAMINES NEGATIVE (NEGATIVE); OPIATES(OP13) NEGATIVE (NEGATIVE); OXYCODONE(OXY) NEGATIVE (NEGATIVE); PROPOXYPHENE(PPX) NEGATIVE (NEGATIVE); TRICYCLIC ANTIDEPRESSANTS NEGATIVE (NEGATIVE)
[2018-05-02 14:37] VITALS: BP 131/81; PULSE 55; RESP 17; O2SAT 97
[2018-05-04] MEDS ORDERED: LORAZEPAM 2 MG/ML SOL IV ONE (00:55)
== END 2018-05-02 14:20 | disposition home or self-care (01) | DRG 392 ==
LOC: ED 11:15
DX: K29.70 Gastritis, unspecified, without bleeding (principal); R10.9 Unspecified abdominal pain; K21.9 Gastro-esophageal reflux disease without esophagitis; F10.129 Alcohol abuse with intoxication, unspecified; Y90.8 Blood alcohol level of 240 mg/100 ml or more
CPT/HCPCS: 80048; 80076; 80305; 80307; 81001; 84484; 85025; 87088; 87205; 93005; 96365; 96366; 96374; 96375; 99283; 99285; J2405; J3010; A9270-GY; J3411

== ENCOUNTER 2018-05-03 14:00 | Inpatient (IN) | payer OTHER ==
[2018-05-03] MEDS ORDERED: LORAZEPAM 0.5 MG TAB PO PRN (14:13)
[2018-05-03] MEDS ORDERED: SODIUM CHLORIDE 0.9% FLUSH 10 ML SOL IV PRN (14:13)
[2018-05-03] MEDS ORDERED: LORAZEPAM 2 MG/ML SOL IV PRN (14:13)
[2018-05-03] MEDS ORDERED: ALUMINUM/MAGNESIUM 30 ML SUS PO PRN (14:13)
[2018-05-03] MEDS: SODIUM CHLORIDE 0.9% FLUSH 10 ML SOL IV SCH (14:30)
[2018-05-03 14:35] LABS: BASOPHILS % (AUTO) 2 % (0-3); EOSINOPHILS % (AUTO) 2 % (0-9); HEMATOCRIT 38 % (35-47); HEMOGLOBIN 12.8 gm/dl (12.0-15.5); LYMPHOCYTES % (AUTO) 21.9 % (10-50); MEAN CORPUSCULAR HEMOGLOBIN 33.8 pg (27.0-32.0); MEAN CORPUSCULAR HGB CONC 33.7 gm/dl (32.0-36.0); MONOCYTES % (AUTO) 10.3 % (0-12); NEUTROPHILS % (AUTO) 63.9 % (37-80)
[2018-05-03 14:42] LABS: MEAN CORPUSCULAR VOLUME 100 fL (81-99)
[2018-05-03] MEDS: SODIUM CHLORIDE 0.9% 1000ML 1,000 ML IV SCH ×4 (14:45→20:43)
[2018-05-03] MEDS: ONDANSETRON HCL 4 MG/2 ML SOL IV PRN (14:45)
[2018-05-03 14:51] LABS: ALBUMIN 3.2 gm/dl (3.4-5.0); ALCOHOL 0.332 gm/dl (0.000-0.08); BILIRUBIN,TOTAL 0.6 mg/dl (0.2-1.0); CALCIUM 8.5 mg/dl (8.5-10.1); CREATININE 1.06 mg/dl (0.60-1.00); POTASSIUM 4.5 mMol/L (3.5-5.1); TOTAL PROTEIN 6.9 gm/dl (6.4-8.2)
[2018-05-03] MEDS: ACETAMINOPHEN 325 MG PO PRN ×2 (15:30→20:43)
[2018-05-03] MEDS: NICOTINE 21 MG PATCH TD SCH (16:51)
[2018-05-03 18:00] LABS: AMPHETAMINES NEGATIVE (NEGATIVE); BARBITUATES NEGATIVE (NEGATIVE); BENZODIAZEPINES NEGATIVE (NEGATIVE); CANNABINOL(THC) POSITIVE (NEGATIVE); COCAINE(COC) NEGATIVE (NEGATIVE); METHADONE NEGATIVE (NEGATIVE); METHAMPHETAMINES NEGATIVE (NEGATIVE); OPIATES(OP1) NEGATIVE (NEGATIVE); OXYCODONE(OXY) NEGATIVE (NEGATIVE); PROPOXYPHENE(PPX) NEGATIVE (NEGATIVE); TRICYCLIC ANTIDEPRESSANTS NEGATIVE (NEGATIVE)
[2018-05-03] MEDS ORDERED: ALBUTEROL NEB SOL 2.5MG/3ML 1 VIAL SOL NEB PRN (18:43)
[2018-05-03] MEDS: THIAMINE 100 MG TAB PO SCH (20:43)
[2018-05-03] MEDS: FOLIC ACID 1 MG TAB PO SCH (20:43)
[2018-05-03] MEDS: MAGNESIUM OXIDE 400 MG TAB PO SCH (20:44)
[2018-05-03] MEDS: AMYLASE PO SCH (20:49)
[2018-05-03] MEDS: LIPASE PO SCH (20:49)
[2018-05-03] MEDS: PROTEASE PO SCH (20:49)
[2018-05-04] MEDS: ONDANSETRON HCL 4 MG/2 ML SOL IV PRN ×3 (01:23→16:55)
[2018-05-04] MEDS ORDERED: ASPIRIN 81 MG CHEWABLE CTB PO ONE (01:23)
[2018-05-04] MEDS ORDERED: LORAZEPAM 2 MG/ML SOL IV ONE (01:33)
[2018-05-04] MEDS: SODIUM CHLORIDE 0.9% FLUSH 10 ML SOL IV SCH ×5 (01:41→22:10)
[2018-05-04 02:10] LABS: MAGNESIUM 1.4 mg/dl (1.8-2.4); TROP I < 0.017 ng/ml (0.000-0.056)
[2018-05-04] MEDS ORDERED: MAGNESIUM SULFATE 1 GM/2 ML 2 GM in SODIUM CHLORIDE 0.9% 100 ML 100 ML IV ONE (02:31)
[2018-05-04] MEDS ORDERED: MAGNESIUM SULFATE 5 GM/10 ML SOL ONE (02:41)
[2018-05-04] MEDS: PANTOPRAZOLE SODIUM 40 MG ECT PO SCH ×2 (03:15→07:37)
[2018-05-04] MEDS: SODIUM CHLORIDE 0.9% 1000ML 1,000 ML IV SCH ×2 (05:37→20:34)
[2018-05-04] MEDS: NICOTINE 21 MG PATCH TD SCH (05:50)
[2018-05-04] MEDS ORDERED: OMEPRAZOLE 20 MG CAPSULE PO SCH (07:00)
[2018-05-04 07:21] LABS: BASOPHILS % (AUTO) 2 % (0-3); EOSINOPHILS % (AUTO) 2 % (0-9); HEMATOCRIT 36 % (35-47); HEMOGLOBIN 12.4 gm/dl (12.0-15.5); LYMPHOCYTES % (AUTO) 28.5 % (10-50); MEAN CORPUSCULAR HEMOGLOBIN 34.8 pg (27.0-32.0); MEAN CORPUSCULAR HGB CONC 34.5 gm/dl (32.0-36.0); MONOCYTES % (AUTO) 5.5 % (0-12); NEUTROPHILS % (AUTO) 62.2 % (37-80)
[2018-05-04 07:31] LABS: ALBUMIN 2.8 gm/dl (3.4-5.0); CALCIUM 8.3 mg/dl (8.5-10.1); CREATININE 1.12 mg/dl (0.60-1.00); POTASSIUM 4.6 mMol/L (3.5-5.1); TOTAL PROTEIN 6.2 gm/dl (6.4-8.2)
[2018-05-04 07:35] LABS: CARBON DIOXIDE 26.1 mEq/L (21-32)
[2018-05-04 07:44] LABS: MEAN CORPUSCULAR VOLUME 101 fL (81-99)
[2018-05-04 08:01] LABS: ANISOCYTOSIS SLIGHT AMT
[2018-05-04] MEDS: AMYLASE PO SCH ×4 (08:44→20:16)
[2018-05-04] MEDS: PROTEASE PO SCH ×4 (08:44→20:16)
[2018-05-04] MEDS: LIPASE PO SCH ×4 (08:44→20:16)
[2018-05-04] MEDS: FOLIC ACID 1 MG TAB PO SCH (08:45)
[2018-05-04] MEDS: MAGNESIUM OXIDE 400 MG TAB PO SCH (08:45)
[2018-05-04] MEDS: THIAMINE 100 MG TAB PO SCH (08:45)
[2018-05-04] MEDS: MULTIVITAMIN2 1 EA TAB PO SCH (08:45)
[2018-05-04] MEDS ORDERED: THIAMINE 100 MG TAB PO SCH (09:00)
[2018-05-04] MEDS ORDERED: FOLIC ACID 1 MG TAB PO SCH (09:00)
[2018-05-04] MEDS: ENOXAPARIN 40 MG SOL SC SCH (10:06)
[2018-05-04] MEDS: ACETAMINOPHEN 325 MG PO PRN (10:08)
[2018-05-04] MEDS ORDERED: TRAZODONE HYDROCHLORIDE 50 MG TAB PO SCH (21:00)
[2018-05-05] MEDS: NICOTINE 21 MG PATCH TD SCH (06:15)
[2018-05-05] MEDS: SODIUM CHLORIDE 0.9% FLUSH 10 ML SOL IV SCH (06:16)
[2018-05-05] MEDS: PANTOPRAZOLE SODIUM 40 MG ECT PO SCH (06:17)
[2018-05-05 07:17] LABS: ALBUMIN 2.6 gm/dl (3.4-5.0); BILIRUBIN,TOTAL 0.5 mg/dl (0.2-1.0); CALCIUM 8.7 mg/dl (8.5-10.1); CARBON DIOXIDE 27.7 mEq/L (21-32); CREATININE 0.92 mg/dl (0.60-1.00); TOTAL PROTEIN 5.9 gm/dl (6.4-8.2)
[2018-05-05 07:18] LABS: BASOPHILS % (AUTO) 1 % (0-3); EOSINOPHILS % (AUTO) 2 % (0-9); HEMATOCRIT 32 % (35-47); HEMOGLOBIN 11.2 gm/dl (12.0-15.5); LYMPHOCYTES % (AUTO) 38.3 % (10-50); MEAN CORPUSCULAR HEMOGLOBIN 35.1 pg (27.0-32.0); MEAN CORPUSCULAR HGB CONC 35.3 gm/dl (32.0-36.0); MONOCYTES % (AUTO) 7.5 % (0-12); NEUTROPHILS % (AUTO) 51.2 % (37-80)
[2018-05-05 07:20] LABS: MEAN CORPUSCULAR VOLUME 100 fL (81-99)
[2018-05-05 07:53] LABS: ANISOCYTOSIS SLIGHT AMT
[2018-05-05 07:54] VITALS: RESP 16
[2018-05-05] MEDS: ONDANSETRON HCL 4 MG/2 ML SOL IV PRN (08:36)
[2018-05-05] MEDS: LIPASE PO SCH ×2 (08:56→13:02)
[2018-05-05] MEDS: MAGNESIUM OXIDE 400 MG TAB PO SCH (08:56)
[2018-05-05] MEDS: MULTIVITAMIN2 1 EA TAB PO SCH (08:56)
[2018-05-05] MEDS: AMYLASE PO SCH ×2 (08:56→13:02)
[2018-05-05] MEDS: PROTEASE PO SCH ×2 (08:56→13:02)
[2018-05-05] MEDS: FOLIC ACID 1 MG TAB PO SCH (08:57)
[2018-05-05] MEDS: THIAMINE 100 MG TAB PO SCH (08:57)
[2018-05-05] MEDS: ENOXAPARIN 40 MG SOL SC SCH (08:58)
[2018-05-05] MEDS ORDERED: PREDNISONE 20 MG TAB PO SCH (09:00)
[2018-05-05 09:58] VITALS: O2SAT 95
[2018-05-05] MEDS: ACETAMINOPHEN 325 MG PO PRN (09:59)
[2018-05-05 11:55] VITALS: BP 164/92; PULSE 66; TEMP 98.6
== END 2018-05-05 13:35 | disposition short-term general hospital (02) | DRG 897 ==
LOC: ACUTE CARE 14:00
PROVIDERS: ADMIT Family Medicine; ATTEND Family Medicine
DX: F10.10 Alcohol abuse, uncomplicated (principal); I48.91 Unspecified atrial fibrillation; I10 Essential (primary) hypertension; R10.9 Unspecified abdominal pain; J44.9 Chronic obstructive pulmonary disease, unspecified; Y90.8 Blood alcohol level of 240 mg/100 ml or more
CPT/HCPCS: 36415; 74177; 80053; 80305; 80307; 82150; 82962; 83735; 84484; 85025; 85378; 93005; 93012; 93306; 94640; J1650; J2060; J2405; J3475; J7613; Q9967; A9270-GY

== ENCOUNTER 2018-05-12 18:47 | Emergency (ER) | payer OTHER ==
[2018-05-12 19:04] VITALS: TEMP 97.7
[2018-05-12 19:14] LABS: BASOPHILS % (AUTO) 2 % (0-3); EOSINOPHILS % (AUTO) 4 % (0-9); HEMATOCRIT 30 % (35-47); HEMOGLOBIN 10.5 gm/dl (12.0-15.5); LYMPHOCYTES % (AUTO) 34.2 % (10-50); MONOCYTES % (AUTO) 14.1 % (0-12); NEUTROPHILS % (AUTO) 46.5 % (37-80)
[2018-05-12 19:17] LABS: MEAN CORPUSCULAR VOLUME 100 fL (81-99)
[2018-05-12 19:21] LABS: ALBUMIN 3.4 gm/dl (3.4-5.0); BILIRUBIN,TOTAL 0.3 mg/dl (0.2-1.0); CALCIUM 9.2 mg/dl (8.5-10.1); CARBON DIOXIDE 28.6 mEq/L (21-32); CREATININE 1.67 mg/dl (0.60-1.00); POTASSIUM 4.2 mMol/L (3.5-5.1); TOTAL PROTEIN 6.8 gm/dl (6.4-8.2)
[2018-05-12 19:21] LABS: APPEARANCE,URINE Slightly Cloudy; BILIRUBIN,URINE NEGATIVE (NEGATIVE); COLOR,URINE Yellow; GLUCOSE, URINE (UA) NEGATIVE (NEGATIVE); KETONES,URINE NEGATIVE (NEGATIVE); LEUKOCYTE ESTERASE ,URINE 2+ (NEGATIVE); NITRATE,URINE POSITIVE (NEGATIVE); OCCULT BLOOD,URINE 1+ (NEG-TRACE); UROBILINOGEN,URINE 0.2 (0.2-1.0 EU)
[2018-05-12 19:35] LABS: AMPHETAMINES NEGATIVE (NEGATIVE); BACTERIA 2+ (< 1+); BARBITUATES NEGATIVE (NEGATIVE); BENZODIAZEPINES NEGATIVE (NEGATIVE); CANNABINOL(THC) NEGATIVE (NEGATIVE); COCAINE(COC) NEGATIVE (NEGATIVE); CRYSTALS NEGATIVE (0-3 AVE/HPF); EPITHELIAL CELLS 0-2 (SQUAMOUS); METHADONE NEGATIVE (NEGATIVE); METHAMPHETAMINES NEGATIVE (NEGATIVE); OPIATES(OP13) NEGATIVE (NEGATIVE); OXYCODONE(OXY) NEGATIVE (NEGATIVE); PROPOXYPHENE(PPX) NEGATIVE (NEGATIVE); RBC,URINE 0-2 (0-3AV/HPF); TRICYCLIC ANTIDEPRESSANTS NEGATIVE (NEGATIVE); WBC,URINE 30-40 (0-5AV/HPF)
[2018-05-12 19:48] LABS: POIKILOCYTOSIS MOD AMT; STOMATOCYTES PRESENT
[2018-05-12] MEDS ORDERED: SULFAMETHOXAZOLE/TRIMETHOPRI 800/160 MG PO ONE ×2 (19:58→19:59)
[2018-05-12] MEDS ORDERED: SULFAMETHOXAZOLE/TRIMETHOPRI 800/160 MG ONE (19:59)
[2018-05-12 21:34] VITALS: BP 160/136; PULSE 72; RESP 18; O2SAT 97
== END 2018-05-12 20:22 | DRG 884 ==
LOC: ED 18:47
DX: R40.4 Transient alteration of awareness (principal); N30.00 Acute cystitis without hematuria
CPT/HCPCS: 36415; 80053; 80305; 81001; 83880; 85025; 87077; 87088; 87186; 99283; A9270-GY

== ENCOUNTER 2018-07-19 17:08 | Inpatient (IN) | payer OTHER ==
[2018-07-19] MEDS ORDERED: KETOROLAC TROMETHAMINE 30 MG/ML SOL IV ONE (17:40)
[2018-07-19] MEDS: SODIUM CHLORIDE 0.9% FLUSH 10 ML SOL IV PRN ×4 (17:45→23:05)
[2018-07-19] MEDS ORDERED: KETOROLAC TROMETHAMINE 30 MG/ML SOL ONE (17:51)
[2018-07-19 18:02] LABS: APPEARANCE,URINE Slightly Cloudy; BILIRUBIN,URINE NEGATIVE (NEGATIVE); COLOR,URINE Yellow; GLUCOSE, URINE (UA) NEGATIVE (NEGATIVE); KETONES,URINE NEGATIVE (NEGATIVE); LEUKOCYTE ESTERASE ,URINE NEGATIVE (NEGATIVE); NITRATE,URINE POSITIVE (NEGATIVE); OCCULT BLOOD,URINE 2+ (NEG-TRACE); PH,URINE 7.5; UROBILINOGEN,URINE 0.2 (0.2-1.0 EU)
[2018-07-19 18:03] LABS: INR 0.97 (0.86-1.12)
[2018-07-19 18:07] LABS: LACTIC ACID 1.2 mMol/L (0.0-2.0)
[2018-07-19 18:13] LABS: ALBUMIN 3.1 gm/dl (3.4-5.0); ALKALINE PHOSPHATASE 90 IU/L (46-116); ALT 29 IU/L (14-63); AMYLASE 83 IU/L (25-115); AST 17 IU/L (15-37); BILIRUBIN,TOTAL 0.3 mg/dl (0.2-1.0); BLOOD UREA NITROGEN 7 mg/dl (7-18); CALCIUM 8.9 mg/dl (8.5-10.1); CARBON DIOXIDE 27.8 mEq/L (21-32); CHLORIDE 102 mMol/L (98-107); CREATININE 0.84 mg/dl (0.60-1.00); GLUCOSE 127 mg/dl (74-106); SODIUM 138 mMol/L (136-145); TOTAL PROTEIN 7.3 gm/dl (6.4-8.2); TROP I < 0.017 ng/ml (0.000-0.056)
[2018-07-19 18:16] LABS: BASOPHILS % (AUTO) 1 % (0-3); EOSINOPHILS % (AUTO) 2 % (0-9); HEMATOCRIT 38 % (35-47); HEMOGLOBIN 12.3 gm/dl (12.0-15.5); LYMPHOCYTES % (AUTO) 22.6 % (10-50); MEAN CORPUSCULAR HEMOGLOBIN 31.5 pg (27.0-32.0); MEAN CORPUSCULAR HGB CONC 32.1 gm/dl (32.0-36.0); MEAN CORPUSCULAR VOLUME 98 fL (81-99); NEUTROPHILS % (AUTO) 68.2 % (37-80)
[2018-07-19 18:21] LABS: CRYSTALS NEGATIVE (0-3 AVE/HPF); EPITHELIAL CELLS 0-3 (SQUAMOUS)
[2018-07-19 18:22] LABS: BACTERIA 3+ (< 1+)
[2018-07-19] MEDS ORDERED: ALBUTEROL/IPRATROPIUM 1 VIAL SOL INH ONE (18:42)
[2018-07-19] MEDS ORDERED: MORPHINE SULFATE 10 MG/ML SOL IV ONE ×2 (18:42)
[2018-07-19] MEDS ORDERED: CEFTRIAXONE 1 GM PDS 1 GM in SODIUM CHLORIDE 0.9% 50 ML 50 ML IV SCH (18:45)
[2018-07-19] MEDS ORDERED: MORPHINE SULFATE 10 MG/ML SOL ONE (18:56)
[2018-07-19] MEDS ORDERED: ALBUTEROL/IPRATROPIUM 1 VIAL SOL ONE (19:10)
[2018-07-19] MEDS ORDERED: CEFTRIAXONE 1 GM PDS ONE (19:10)
[2018-07-19] MEDS ORDERED: LORAZEPAM 0.5 MG TAB PO PRN (20:32)
[2018-07-19] MEDS ORDERED: ALBUTEROL NEB SOL 2.5MG/3ML 1 VIAL SOL INH PRN (20:32)
[2018-07-19] MEDS ORDERED: ALBUTEROL HFA 60 PUFF/INHALER INH PRN (20:32)
[2018-07-19] MEDS ORDERED: ALUMINUM/MAGNESIUM 30 ML SUS PO PRN (20:41)
[2018-07-19] MEDS ORDERED: LORAZEPAM 2 MG/ML SOL IV PRN (20:41)
[2018-07-19] MEDS ORDERED: ONDANSETRON HCL 4 MG/2 ML SOL IV PRN (20:41)
[2018-07-19] MEDS ORDERED: PROCHLORPERAZINE EDISYLATE 5 MG/ML SOL IV PRN (20:43)
[2018-07-19] MEDS ORDERED: LEVOFLOXACIN 25 MG/ML 750 MG in SODIUM CHLORIDE 0.9% 250 ML 150 ML IV SCH (20:45)
[2018-07-19] MEDS ORDERED: SODIUM CHLORIDE 0.9% FLUSH 10 ML SOL IV SCH (20:45)
[2018-07-19] MEDS ORDERED: POTASSIUM CHLORIDE 10 MEQ TER PO SCH (21:00)
[2018-07-19] MEDS ORDERED: SODIUM CHLORIDE 0.9% 250 ML 250 ML IV ONE (21:07)
[2018-07-19] MEDS ORDERED: LEVOFLOXACIN 25 MG/ML SOL IV ONE (21:07)
[2018-07-19] MEDS ORDERED: POTASSIUM CHLORIDE 2 MEQ/ML SOL IV ONE (21:07)
[2018-07-19] MEDS: SODIUM CHLORIDE 0.45% 1000 ML 1,000 ML with POTASSIUM CHLORIDE 2 MEQ/ML 20 MEQ IV SCH (21:35)
[2018-07-19] MEDS: SODIUM CHLORIDE 0.9% FLUSH 10 ML SOL IV SCH (21:35)
[2018-07-19] MEDS: ENOXAPARIN 40 MG SOL SC SCH (21:37)
[2018-07-19] MEDS: SOLUMEDROL 125 MG/2 ML 125 MG/2 ML PDS IV SCH (21:40)
[2018-07-19] MEDS: FUROSEMIDE 40 MG SOL IV SCH (21:41)
[2018-07-19] MEDS: NICOTINE 21 MG PATCH TD SCH (21:43)
[2018-07-19] MEDS: MORPHINE SULFATE 10 MG/ML SOL IV PRN ×2 (21:50→23:04)
[2018-07-19] MEDS: ALBUTEROL/IPRATROPIUM 1 VIAL SOL INH SCH (22:00)
[2018-07-19] MEDS: LIPASE PO SCH (23:52)
[2018-07-19] MEDS: PROTEASE PO SCH (23:52)
[2018-07-19] MEDS: AMYLASE PO SCH (23:52)
[2018-07-20] MEDS ORDERED: LISINOPRIL 5 MG TAB PO ONE (00:25)
[2018-07-20] MEDS: MORPHINE SULFATE 10 MG/ML SOL IV PRN ×8 (02:04→20:42)
[2018-07-20] MEDS: SODIUM CHLORIDE 0.9% FLUSH 10 ML SOL IV PRN (02:05)
[2018-07-20] MEDS: ALBUTEROL/IPRATROPIUM 1 VIAL SOL INH SCH ×4 (03:16→22:08)
[2018-07-20] MEDS: SODIUM CHLORIDE 0.9% FLUSH 10 ML SOL IV SCH ×5 (04:26→20:49)
[2018-07-20] MEDS ORDERED: OMEPRAZOLE 20 MG CAPSULE PO SCH (07:00)
[2018-07-20 07:14] LABS: BASOPHILS % (AUTO) 0 % (0-3); EOSINOPHILS % (AUTO) 0 % (0-9); HEMATOCRIT 35 % (35-47); HEMOGLOBIN 11.2 gm/dl (12.0-15.5); LYMPHOCYTES % (AUTO) 7.7 % (10-50); MEAN CORPUSCULAR HEMOGLOBIN 31.1 pg (27.0-32.0); MEAN CORPUSCULAR HGB CONC 31.7 gm/dl (32.0-36.0); MEAN CORPUSCULAR VOLUME 98 fL (81-99); MONOCYTES % (AUTO) 1.4 % (0-12); NEUTROPHILS % (AUTO) 90.5 % (37-80)
[2018-07-20 07:34] LABS: ALBUMIN 2.8 gm/dl (3.4-5.0); BILIRUBIN,TOTAL 0.3 mg/dl (0.2-1.0); CALCIUM 8.8 mg/dl (8.5-10.1); CREATININE 0.95 mg/dl (0.60-1.00); POTASSIUM 4.3 mMol/L (3.5-5.1); TOTAL PROTEIN 6.9 gm/dl (6.4-8.2)
[2018-07-20] MEDS: SOLUMEDROL 125 MG/2 ML 125 MG/2 ML PDS IV SCH ×2 (08:25→20:50)
[2018-07-20] MEDS: FUROSEMIDE 40 MG SOL IV SCH ×2 (08:26→20:54)
[2018-07-20] MEDS: METOPROLOL SUCCINATE 50 MG ER TAB PO SCH (08:28)
[2018-07-20] MEDS: ASPIRIN EC 81 MG PO SCH (08:28)
[2018-07-20] MEDS: ENOXAPARIN 40 MG SOL SC SCH (08:30)
[2018-07-20] MEDS: PANTOPRAZOLE SODIUM 40 MG ECT PO SCH (08:32)
[2018-07-20] MEDS: MULTIVITAMIN2 1 EA TAB PO SCH (08:32)
[2018-07-20] MEDS: MAGNESIUM OXIDE 400 MG TAB PO SCH (08:32)
[2018-07-20] MEDS ORDERED: THIAMINE 100 MG TAB ONE (08:45)
[2018-07-20] MEDS ORDERED: LEVOFLOXACIN 500 MG TAB PO SCH (09:00)
[2018-07-20] MEDS ORDERED: AZELASTINE OP PRN (09:00)
[2018-07-20] MEDS: AMYLASE PO SCH ×4 (09:29→20:49)
[2018-07-20] MEDS: THIAMINE 100 MG TAB PO SCH (09:29)
[2018-07-20] MEDS: PROTEASE PO SCH ×4 (09:29→20:49)
[2018-07-20] MEDS: LIPASE PO SCH ×4 (09:29→20:49)
[2018-07-20] MEDS: TRAMADOL HYDROCHLORIDE 50 MG TAB PO PRN ×2 (10:09→16:59)
[2018-07-20] MEDS ORDERED: POTASSIUM CHLORIDE 2 MEQ/ML SOL IV ONE (14:24)
[2018-07-20] MEDS: SODIUM CHLORIDE 0.45% 1000 ML 1,000 ML with POTASSIUM CHLORIDE 2 MEQ/ML 20 MEQ IV SCH (14:29)
[2018-07-20] MEDS: NICOTINE 21 MG PATCH TD SCH (20:54)
[2018-07-21] MEDS: MORPHINE SULFATE 10 MG/ML SOL IV PRN ×4 (00:17→12:38)
[2018-07-21] MEDS: TRAMADOL HYDROCHLORIDE 50 MG TAB PO PRN ×3 (01:06→14:43)
[2018-07-21] MEDS: ALBUTEROL/IPRATROPIUM 1 VIAL SOL INH SCH ×4 (04:51→21:35)
[2018-07-21] MEDS: SODIUM CHLORIDE 0.9% FLUSH 10 ML SOL IV SCH ×4 (04:57→20:26)
[2018-07-21] MEDS ORDERED: POTASSIUM CHLORIDE 2 MEQ/ML SOL IV ONE (05:56)
[2018-07-21] MEDS: SODIUM CHLORIDE 0.45% 1000 ML 1,000 ML with POTASSIUM CHLORIDE 2 MEQ/ML 20 MEQ IV SCH (06:01)
[2018-07-21 07:23] LABS: BASOPHILS % (AUTO) 0 % (0-3); EOSINOPHILS % (AUTO) 0 % (0-9); HEMATOCRIT 33 % (35-47); HEMOGLOBIN 10.7 gm/dl (12.0-15.5); MEAN CORPUSCULAR HEMOGLOBIN 31.9 pg (27.0-32.0); MEAN CORPUSCULAR HGB CONC 32.9 gm/dl (32.0-36.0); MEAN CORPUSCULAR VOLUME 97 fL (81-99); MONOCYTES % (AUTO) 3.9 % (0-12); NEUTROPHILS % (AUTO) 87.9 % (37-80)
[2018-07-21 07:36] LABS: ALBUMIN 2.8 gm/dl (3.4-5.0); BILIRUBIN,TOTAL 0.2 mg/dl (0.2-1.0); CALCIUM 8.7 mg/dl (8.5-10.1); CARBON DIOXIDE 27.5 mEq/L (21-32); CREATININE 1.01 mg/dl (0.60-1.00); POTASSIUM 4.1 mMol/L (3.5-5.1); TOTAL PROTEIN 6.5 gm/dl (6.4-8.2)
[2018-07-21] MEDS ORDERED: FUROSEMIDE 40 MG SOL IV SCH (09:00)
[2018-07-21] MEDS: LIPASE PO SCH ×4 (09:20→20:28)
[2018-07-21] MEDS: FUROSEMIDE 20 MG TAB PO SCH ×2 (09:20→11:58)
[2018-07-21] MEDS: AMYLASE PO SCH ×4 (09:20→20:28)
[2018-07-21] MEDS: LEVOFLOXACIN 500 MG TAB PO SCH (09:20)
[2018-07-21] MEDS: PROTEASE PO SCH ×4 (09:20→20:28)
[2018-07-21] MEDS: ASPIRIN EC 81 MG PO SCH (09:20)
[2018-07-21] MEDS: ENOXAPARIN 40 MG SOL SC SCH (09:20)
[2018-07-21] MEDS: PANTOPRAZOLE SODIUM 40 MG ECT PO SCH (09:21)
[2018-07-21] MEDS: MAGNESIUM OXIDE 400 MG TAB PO SCH (09:21)
[2018-07-21] MEDS: PREDNISONE 20 MG TAB PO SCH (09:21)
[2018-07-21] MEDS: METOPROLOL SUCCINATE 50 MG ER TAB PO SCH (09:22)
[2018-07-21] MEDS: MULTIVITAMIN2 1 EA TAB PO SCH (09:22)
[2018-07-21] MEDS: THIAMINE 100 MG TAB PO SCH (09:22)
[2018-07-21] MEDS ORDERED: TRAMADOL HYDROCHLORIDE 50 MG TAB PO PRN ×2 (17:30→19:59)
[2018-07-21] MEDS: NICOTINE 21 MG PATCH TD SCH (20:27)
[2018-07-21] MEDS: APAP/HYDROCODONE 325/5 TAB PO PRN (20:28)
[2018-07-22] MEDS: APAP/HYDROCODONE 325/5 TAB PO PRN (03:43)
[2018-07-22] MEDS: ALBUTEROL/IPRATROPIUM 1 VIAL SOL INH SCH ×2 (03:43→10:35)
[2018-07-22] MEDS: SODIUM CHLORIDE 0.9% FLUSH 10 ML SOL IV SCH (06:21)
[2018-07-22 07:16] LABS: BASOPHILS % (AUTO) 1 % (0-3); EOSINOPHILS % (AUTO) 0 % (0-9); HEMATOCRIT 32 % (35-47); HEMOGLOBIN 10.5 gm/dl (12.0-15.5); MEAN CORPUSCULAR HGB CONC 32.9 gm/dl (32.0-36.0); MEAN CORPUSCULAR VOLUME 97 fL (81-99); MONOCYTES % (AUTO) 7.2 % (0-12); NEUTROPHILS % (AUTO) 64.6 % (37-80)
[2018-07-22 07:18] LABS: ALBUMIN 2.7 gm/dl (3.4-5.0); BILIRUBIN,TOTAL 0.2 mg/dl (0.2-1.0); CALCIUM 8.4 mg/dl (8.5-10.1); CARBON DIOXIDE 26.3 mEq/L (21-32); CREATININE 1.12 mg/dl (0.60-1.00); POTASSIUM 4.1 mMol/L (3.5-5.1); TOTAL PROTEIN 6.2 gm/dl (6.4-8.2)
[2018-07-22 08:03] VITALS: BP 146/84; PULSE 82; RESP 18; TEMP 98
[2018-07-22] MEDS: ASPIRIN EC 81 MG PO SCH (08:31)
[2018-07-22] MEDS: FUROSEMIDE 20 MG TAB PO SCH (08:32)
[2018-07-22] MEDS: ENOXAPARIN 40 MG SOL SC SCH (08:32)
[2018-07-22] MEDS: PROTEASE PO SCH (08:32)
[2018-07-22] MEDS: LEVOFLOXACIN 500 MG TAB PO SCH (08:32)
[2018-07-22] MEDS: AMYLASE PO SCH (08:32)
[2018-07-22] MEDS: LIPASE PO SCH (08:32)
[2018-07-22] MEDS: PANTOPRAZOLE SODIUM 40 MG ECT PO SCH (08:33)
[2018-07-22] MEDS: THIAMINE 100 MG TAB PO SCH (08:33)
[2018-07-22] MEDS: MAGNESIUM OXIDE 400 MG TAB PO SCH (08:33)
[2018-07-22] MEDS: PREDNISONE 20 MG TAB PO SCH (08:33)
[2018-07-22] MEDS: MULTIVITAMIN2 1 EA TAB PO SCH (08:34)
[2018-07-22] MEDS: METOPROLOL SUCCINATE 50 MG ER TAB PO SCH (08:34)
[2018-07-22 09:30] VITALS: O2SAT 94
== END 2018-07-22 11:30 | disposition home or self-care (01) | DRG 439 ==
LOC: ED 17:08 → ACUTE CARE 20:13 → UNDOADMIN 20:13 → ACUTE CARE 20:35
PROVIDERS: ADMIT Family Medicine; ATTEND Family Medicine
DX: K85.90 Acute pancreatitis without necrosis or infection, unspecified (principal); N39.0 Urinary tract infection, site not specified; J44.1 Chronic obstructive pulmonary disease with (acute) exacerbation; I35.0 Nonrheumatic aortic (valve) stenosis; I10 Essential (primary) hypertension; R91.8 Other nonspecific abnormal finding of lung field; J45.998 Other asthma; I48.91 Unspecified atrial fibrillation; Z72.0 Tobacco use
CPT/HCPCS: 36415; 71046; 74177; 80053; 81001; 82150; 83880; 84484; 85025; 85610; 87040; 87077; 87088; 87186; 93005; 94150; 94640; 94664; 94760; 96365; 96374; 96375; 99070; 99222; 99285; J0696; J0780; J1650; J1885; J1940; J1956; J2270; J2405; J2930; J3480; Q9967; A9270-GY

== ENCOUNTER 2018-08-28 19:33 | Inpatient (IN) | payer OTHER ==
[2018-08-28] MEDS ORDERED: HYDROMORPHONE HCL 2 MG/ML SOL IV ONE (19:43)
[2018-08-28] MEDS ORDERED: PANTOPRAZOLE SODIUM 40 MG/10 ML PDS IV ONE (19:44)
[2018-08-28] MEDS ORDERED: SODIUM CHLORIDE 0.9% 1000 ML SOL IV SCH (19:45)
[2018-08-28] MEDS ORDERED: HYDROMORPHONE 1 MG/ML SYRINGE ONE (19:49)
[2018-08-28] MEDS ORDERED: PANTOPRAZOLE SODIUM 40 MG/10 ML PDS ONE (19:51)
[2018-08-28 19:59] LABS: BASOPHILS % (AUTO) 1 % (0-3); EOSINOPHILS % (AUTO) 1 % (0-9); HEMATOCRIT 37 % (35-47); LYMPHOCYTES % (AUTO) 29.9 % (10-50); MEAN CORPUSCULAR HEMOGLOBIN 32.3 pg (27.0-32.0); MEAN CORPUSCULAR HGB CONC 32.6 gm/dl (32.0-36.0); MONOCYTES % (AUTO) 6.5 % (0-12); NEUTROPHILS % (AUTO) 61.8 % (37-80)
[2018-08-28] MEDS ORDERED: SOLUMEDROL 125 MG/2 ML 125 MG/2 ML PDS IV ONE (20:03)
[2018-08-28] MEDS ORDERED: SOLUMEDROL 125 MG/2 ML 125 MG/2 ML PDS ONE (20:03)
[2018-08-28] MEDS ORDERED: ALBUTEROL/IPRATROPIUM 1 VIAL SOL INH ONE (20:03)
[2018-08-28 20:05] LABS: ALBUMIN 2.9 gm/dl (3.4-5.0); BILIRUBIN,TOTAL 0.3 mg/dl (0.2-1.0); CARBON DIOXIDE 22.3 mEq/L (21-32); CREATININE 0.74 mg/dl (0.60-1.00); POTASSIUM 4.5 mMol/L (3.5-5.1); TOTAL PROTEIN 6.6 gm/dl (6.4-8.2)
[2018-08-28 20:06] LABS: MEAN CORPUSCULAR VOLUME 99 fL (81-99)
[2018-08-28] MEDS ORDERED: ALBUTEROL/IPRATROPIUM 1 VIAL SOL ONE (20:15)
[2018-08-28 20:17] LABS: APPEARANCE,URINE Slightly Cloudy; BILIRUBIN,URINE NEGATIVE (NEGATIVE); COLOR,URINE Light yellow; GLUCOSE, URINE (UA) NEGATIVE (NEGATIVE); KETONES,URINE NEGATIVE (NEGATIVE); LEUKOCYTE ESTERASE ,URINE 1+ (NEGATIVE); NITRATE,URINE POSITIVE (NEGATIVE); OCCULT BLOOD,URINE 2+ (NEG-TRACE); PH,URINE 5.5; UROBILINOGEN,URINE 0.2 (0.2-1.0 EU)
[2018-08-28 20:29] LABS: BACTERIA 3+ (< 1+); CRYSTALS NEGATIVE (0-3 AVE/HPF)
[2018-08-28] MEDS ORDERED: MORPHINE SULFATE 10 MG/ML SOL IV ONE (21:26)
[2018-08-28] MEDS ORDERED: KETOROLAC TROMETHAMINE 30 MG/ML SOL IV ONE (21:26)
[2018-08-28] MEDS ORDERED: MORPHINE SULFATE 10 MG/ML SOL ONE (21:32)
[2018-08-28] MEDS ORDERED: KETOROLAC TROMETHAMINE 30 MG/ML SOL ONE (21:32)
[2018-08-28] MEDS ORDERED: ENOXAPARIN 40 MG SOL SC SCH (22:00)
[2018-08-28] MEDS ORDERED: CEFTRIAXONE 1 GM PDS 1 GM in SODIUM CHLORIDE 0.9% 50 ML 50 ML IV ONE (22:03)
[2018-08-28] MEDS ORDERED: ALBUTEROL NEB SOL 2.5MG/3ML 1 VIAL SOL NEB PRN (22:03)
[2018-08-28] MEDS ORDERED: AZITHROMYCIN 500 MG PDS 500 MG in SODIUM CHLORIDE 0.9% 250 ML 250 ML IV ONE (22:03)
[2018-08-28] MEDS ORDERED: AZELASTINE HCL OP PRN (22:04)
[2018-08-28] MEDS ORDERED: SOLUMEDROL 125 MG/2 ML 125 MG/2 ML PDS IV SCH (22:15)
[2018-08-28] MEDS ORDERED: PATIENT EDUCATION 1 MISC PRN (22:28)
[2018-08-28] MEDS ORDERED: CEFTRIAXONE 1 GM PDS ONE (22:34)
[2018-08-28] MEDS ORDERED: SODIUM CHLORIDE 0.9% 50 ML 50 ML IV ONE (22:34)
[2018-08-28] MEDS ORDERED: SODIUM CHLORIDE 0.9% 250 ML 250 ML IV ONE (22:34)
[2018-08-28] MEDS ORDERED: AZITHROMYCIN 500 MG PDS IV ONE (22:34)
[2018-08-28] MEDS ORDERED: NAPROXEN 500 MG TAB ONE (22:40)
[2018-08-28] MEDS ORDERED: LORAZEPAM 2 MG/ML SOL IV PRN ×2 (22:44→23:47)
[2018-08-28] MEDS: SODIUM CHLORIDE 0.9% FLUSH 10 ML SOL IV SCH ×2 (22:45→23:49)
[2018-08-28] MEDS: ALBUTEROL/IPRATROPIUM 1 VIAL SOL INH SCH (22:46)
[2018-08-28] MEDS: NAPROXEN 500 MG TAB PO SCH ×2 (22:46→22:50)
[2018-08-28] MEDS ORDERED: LORAZEPAM 0.5 MG TAB PO PRN (23:47)
[2018-08-29] MEDS ORDERED: HYDROMORPHONE 1 MG/ML SYRINGE ONE ×2 (00:15→04:12)
[2018-08-29] MEDS: HYDROMORPHONE HCL 2 MG/ML SOL IV PRN ×2 (00:19→04:16)
[2018-08-29] MEDS: SOLUMEDROL 125 MG/2 ML 125 MG/2 ML PDS IV SCH ×2 (01:51→09:16)
[2018-08-29] MEDS: SODIUM CHLORIDE 0.9% FLUSH 10 ML SOL IV SCH ×6 (01:51→22:49)
[2018-08-29] MEDS: ALBUTEROL/IPRATROPIUM 1 VIAL SOL INH SCH (03:30)
[2018-08-29] MEDS: PANTOPRAZOLE SODIUM 40 MG ECT PO SCH (06:00)
[2018-08-29] MEDS ORDERED: OMEPRAZOLE 40 MG ECC PO SCH (07:00)
[2018-08-29 07:13] LABS: BASOPHILS % (AUTO) 0 % (0-3); EOSINOPHILS % (AUTO) 0 % (0-9); HEMATOCRIT 33 % (35-47); HEMOGLOBIN 10.6 gm/dl (12.0-15.5); LYMPHOCYTES % (AUTO) 7.5 % (10-50); MEAN CORPUSCULAR HEMOGLOBIN 31.9 pg (27.0-32.0); MEAN CORPUSCULAR HGB CONC 31.9 gm/dl (32.0-36.0); MONOCYTES % (AUTO) 0.6 % (0-12); NEUTROPHILS % (AUTO) 91.6 % (37-80)
[2018-08-29 07:16] LABS: MEAN CORPUSCULAR VOLUME 100 fL (81-99)
[2018-08-29 07:26] LABS: ALBUMIN 2.7 gm/dl (3.4-5.0); BILIRUBIN,TOTAL 0.3 mg/dl (0.2-1.0); CALCIUM 8.5 mg/dl (8.5-10.1); CARBON DIOXIDE 20.8 mEq/L (21-32); CREATININE 0.84 mg/dl (0.60-1.00); POTASSIUM 4.9 mMol/L (3.5-5.1); TOTAL PROTEIN 6.1 gm/dl (6.4-8.2)
[2018-08-29] MEDS ORDERED: SODIUM CHLORIDE 0.9% 1000ML 1,000 ML IV ONE (08:16)
[2018-08-29] MEDS ORDERED: MULTIVITAMIN2 1 EA TAB PO SCH (09:00)
[2018-08-29] MEDS ORDERED: VITAMIN D3 PO SCH (09:00)
[2018-08-29] MEDS ORDERED: GABAPENTIN 300 MG CAP PO SCH (09:00)
[2018-08-29] MEDS ORDERED: ASPIRIN EC 81 MG PO SCH (09:00)
[2018-08-29] MEDS ORDERED: LEVOFLOXACIN 500 MG TAB PO SCH (09:00)
[2018-08-29] MEDS ORDERED: CALCIUM CARBONATE PO SCH (09:00)
[2018-08-29] MEDS ORDERED: LISINOPRIL 20 MG TAB PO SCH (09:00)
[2018-08-29] MEDS ORDERED: FLUTICASONE PROPIONATE SCH (09:00)
[2018-08-29] MEDS ORDERED: FUROSEMIDE 20 MG TAB PO SCH (09:00)
[2018-08-29] MEDS ORDERED: [UNRECOGNIZED DRUG - OTHER] PO SCH (09:00)
[2018-08-29] MEDS ORDERED: LORATADINE 10 MG TAB PO SCH (09:00)
[2018-08-29] MEDS: FOLIC ACID 1 MG TAB PO SCH (09:17)
[2018-08-29] MEDS: POTASSIUM CHLORIDE 10 MEQ TER PO SCH (09:17)
[2018-08-29] MEDS: MAGNESIUM OXIDE 400 MG TAB PO SCH (09:18)
[2018-08-29] MEDS: THIAMINE 100 MG TAB PO SCH (09:18)
[2018-08-29] MEDS: METOPROLOL SUCCINATE 50 MG ER TAB PO SCH (09:19)
[2018-08-29] MEDS: AZITHROMYCIN 250 MG TAB PO SCH (09:20)
[2018-08-29] MEDS: HYDROMORPHONE 1 MG/ML SYRINGE IV PRN ×5 (09:30→20:14)
[2018-08-29] MEDS: LIPASE PO SCH ×4 (11:06→20:17)
[2018-08-29] MEDS: ONDANSETRON HCL 4 MG/2 ML SOL IV PRN (11:06)
[2018-08-29] MEDS: PROTEASE PO SCH ×4 (11:06→20:17)
[2018-08-29] MEDS: AMYLASE PO SCH ×4 (11:06→20:17)
[2018-08-29] MEDS: SODIUM CHLORIDE 0.9% 1000ML 1,000 ML IV SCH (14:49)
[2018-08-29] MEDS: NICOTINE 21 MG PATCH TD SCH (17:55)
[2018-08-29] MEDS: LISINOPRIL 20 MG TAB PO SCH (17:56)
[2018-08-29] MEDS ORDERED: FUROSEMIDE 40 MG TAB PO SCH (18:00)
[2018-08-30] MEDS: HYDROMORPHONE 1 MG/ML SYRINGE IV PRN ×6 (00:24→20:45)
[2018-08-30] MEDS: SODIUM CHLORIDE 0.9% 1000ML 1,000 ML IV SCH (00:33)
[2018-08-30] MEDS: SODIUM CHLORIDE 0.9% FLUSH 10 ML SOL IV SCH ×4 (06:16→22:55)
[2018-08-30] MEDS: PANTOPRAZOLE SODIUM 40 MG ECT PO SCH (06:50)
[2018-08-30 07:27] LABS: ALBUMIN 2.6 gm/dl (3.4-5.0); BILIRUBIN,TOTAL 0.5 mg/dl (0.2-1.0); CARBON DIOXIDE 28.4 mEq/L (21-32); CREATININE 0.92 mg/dl (0.60-1.00); POTASSIUM 4.3 mMol/L (3.5-5.1)
[2018-08-30] MEDS: PROTEASE PO SCH ×4 (09:39→20:52)
[2018-08-30] MEDS: AMYLASE PO SCH ×4 (09:39→20:52)
[2018-08-30] MEDS: LIPASE PO SCH ×4 (09:39→20:52)
[2018-08-30] MEDS: MAGNESIUM OXIDE 400 MG TAB PO SCH (09:40)
[2018-08-30] MEDS: FOLIC ACID 1 MG TAB PO SCH (09:40)
[2018-08-30] MEDS: THIAMINE 100 MG TAB PO SCH (09:40)
[2018-08-30] MEDS: POTASSIUM CHLORIDE 10 MEQ TER PO SCH (09:40)
[2018-08-30] MEDS: METOPROLOL SUCCINATE 50 MG ER TAB PO SCH (09:40)
[2018-08-30] MEDS: LISINOPRIL 20 MG TAB PO SCH (09:41)
[2018-08-30] MEDS: AZITHROMYCIN 250 MG TAB PO SCH (09:41)
[2018-08-30] MEDS: ONDANSETRON HCL 4 MG/2 ML SOL IV PRN (17:05)
[2018-08-30] MEDS ORDERED: BISACODYL 5 MG TAB ECT PO PRN (17:13)
[2018-08-30] MEDS: AMLODIPINE 5 MG TAB PO SCH (18:05)
[2018-08-30] MEDS: NICOTINE 21 MG PATCH TD SCH (18:07)
[2018-08-30] MEDS: SULFAMETHOXAZOLE/TRIMETHOPRI 800/160 MG PO SCH (20:52)
[2018-08-31] MEDS: HYDROMORPHONE 1 MG/ML SYRINGE IV PRN ×5 (00:34→21:59)
[2018-08-31] MEDS: SODIUM CHLORIDE 0.9% FLUSH 10 ML SOL IV SCH ×5 (03:36→22:02)
[2018-08-31] MEDS: PANTOPRAZOLE SODIUM 40 MG ECT PO SCH (06:34)
[2018-08-31 07:26] LABS: CALCIUM 8.1 mg/dl (8.5-10.1); CARBON DIOXIDE 27.7 mEq/L (21-32); CREATININE 0.92 mg/dl (0.60-1.00); CRP INFLAMMATORY 3.79 mg/dl (0.00-0.33); POTASSIUM 3.9 mMol/L (3.5-5.1)
[2018-08-31] MEDS: POTASSIUM CHLORIDE 10 MEQ TER PO SCH (08:48)
[2018-08-31] MEDS: MAGNESIUM OXIDE 400 MG TAB PO SCH (08:48)
[2018-08-31] MEDS: THIAMINE 100 MG TAB PO SCH (08:48)
[2018-08-31] MEDS: METOPROLOL SUCCINATE 50 MG ER TAB PO SCH (08:48)
[2018-08-31] MEDS: AMYLASE PO SCH ×4 (08:48→20:30)
[2018-08-31] MEDS: LIPASE PO SCH ×4 (08:48→20:30)
[2018-08-31] MEDS: FOLIC ACID 1 MG TAB PO SCH (08:48)
[2018-08-31] MEDS: PROTEASE PO SCH ×4 (08:48→20:30)
[2018-08-31] MEDS: AMLODIPINE 5 MG TAB PO SCH (08:53)
[2018-08-31] MEDS: LISINOPRIL 20 MG TAB PO SCH (08:53)
[2018-08-31] MEDS: SULFAMETHOXAZOLE/TRIMETHOPRI 800/160 MG PO SCH ×2 (08:54→20:30)
[2018-08-31] MEDS: OXYCODONE HYDROCHLORIDE 5 MG TAB PO PRN ×3 (10:34→20:29)
[2018-08-31] MEDS: NICOTINE 21 MG PATCH TD SCH (17:38)
[2018-09-01] MEDS: OXYCODONE HYDROCHLORIDE 5 MG TAB PO PRN ×4 (04:58→21:10)
[2018-09-01] MEDS: SODIUM CHLORIDE 0.9% FLUSH 10 ML SOL IV SCH ×3 (05:01→22:00)
[2018-09-01 07:21] LABS: CALCIUM 8.1 mg/dl (8.5-10.1); CARBON DIOXIDE 24.3 mEq/L (21-32); CREATININE 0.8 mg/dl (0.60-1.00); CRP INFLAMMATORY 9.5 mg/dl (0.00-0.33); POTASSIUM 3.8 mMol/L (3.5-5.1)
[2018-09-01] MEDS: PANTOPRAZOLE SODIUM 40 MG ECT PO SCH (07:29)
[2018-09-01] MEDS: ONDANSETRON HCL 4 MG/2 ML SOL IV PRN (09:10)
[2018-09-01] MEDS: FOLIC ACID 1 MG TAB PO SCH (10:06)
[2018-09-01] MEDS: POTASSIUM CHLORIDE 10 MEQ TER PO SCH (10:06)
[2018-09-01] MEDS: THIAMINE 100 MG TAB PO SCH (10:06)
[2018-09-01] MEDS: SULFAMETHOXAZOLE/TRIMETHOPRI 800/160 MG PO SCH ×2 (10:06→20:38)
[2018-09-01] MEDS: MAGNESIUM OXIDE 400 MG TAB PO SCH (10:06)
[2018-09-01] MEDS: LISINOPRIL 20 MG TAB PO SCH (10:07)
[2018-09-01] MEDS: METOPROLOL SUCCINATE 50 MG ER TAB PO SCH (10:07)
[2018-09-01] MEDS: AMLODIPINE 5 MG TAB PO SCH (10:07)
[2018-09-01] MEDS: AMYLASE PO SCH ×4 (10:39→20:38)
[2018-09-01] MEDS: LIPASE PO SCH ×4 (10:39→20:38)
[2018-09-01] MEDS: PROTEASE PO SCH ×4 (10:39→20:38)
[2018-09-01] MEDS: NICOTINE 21 MG PATCH TD SCH (17:07)
[2018-09-02] MEDS: OXYCODONE HYDROCHLORIDE 5 MG TAB PO PRN ×5 (03:06→23:01)
[2018-09-02] MEDS: PANTOPRAZOLE SODIUM 40 MG ECT PO SCH (06:29)
[2018-09-02] MEDS: SULFAMETHOXAZOLE/TRIMETHOPRI 800/160 MG PO SCH ×2 (08:25→19:59)
[2018-09-02] MEDS: LIPASE PO SCH ×4 (08:26→19:59)
[2018-09-02] MEDS: PROTEASE PO SCH ×4 (08:26→19:59)
[2018-09-02] MEDS: AMYLASE PO SCH ×4 (08:26→19:59)
[2018-09-02] MEDS: FOLIC ACID 1 MG TAB PO SCH (08:26)
[2018-09-02] MEDS: POTASSIUM CHLORIDE 10 MEQ TER PO SCH (08:27)
[2018-09-02] MEDS: MAGNESIUM OXIDE 400 MG TAB PO SCH (08:27)
[2018-09-02] MEDS: AMLODIPINE 5 MG TAB PO SCH (08:28)
[2018-09-02] MEDS: SODIUM CHLORIDE 0.9% FLUSH 10 ML SOL IV SCH ×2 (08:30→17:15)
[2018-09-02] MEDS: THIAMINE 100 MG TAB PO SCH (08:30)
[2018-09-02] MEDS: METOPROLOL SUCCINATE 50 MG ER TAB PO SCH (08:31)
[2018-09-02] MEDS: LISINOPRIL 20 MG TAB PO SCH (08:34)
[2018-09-02] MEDS: NICOTINE 21 MG PATCH TD SCH (17:15)
[2018-09-03] MEDS: SODIUM CHLORIDE 0.9% FLUSH 10 ML SOL IV SCH ×4 (00:16→20:12)
[2018-09-03] MEDS: OXYCODONE HYDROCHLORIDE 5 MG TAB PO PRN ×5 (03:40→22:23)
[2018-09-03] MEDS: PANTOPRAZOLE SODIUM 40 MG ECT PO SCH (06:10)
[2018-09-03 07:45] LABS: BASOPHILS % (AUTO) 1 % (0-3); EOSINOPHILS % (AUTO) 4 % (0-9); HEMATOCRIT 30 % (35-47); HEMOGLOBIN 9.5 gm/dl (12.0-15.5); LYMPHOCYTES % (AUTO) 24.1 % (10-50); MEAN CORPUSCULAR HEMOGLOBIN 31.9 pg (27.0-32.0); MEAN CORPUSCULAR HGB CONC 31.4 gm/dl (32.0-36.0); NEUTROPHILS % (AUTO) 60.7 % (37-80)
[2018-09-03 07:46] LABS: BILIRUBIN,TOTAL 0.5 mg/dl (0.2-1.0); CARBON DIOXIDE 23.7 mEq/L (21-32); CREATININE 0.88 mg/dl (0.60-1.00); CRP INFLAMMATORY 7.56 mg/dl (0.00-0.33); POTASSIUM 3.8 mMol/L (3.5-5.1); TOTAL PROTEIN 5.2 gm/dl (6.4-8.2)
[2018-09-03 07:49] LABS: MEAN CORPUSCULAR VOLUME 102 fL (81-99)
[2018-09-03] MEDS: PROTEASE PO SCH ×4 (08:37→20:11)
[2018-09-03] MEDS: POTASSIUM CHLORIDE 10 MEQ TER PO SCH (08:37)
[2018-09-03] MEDS: FOLIC ACID 1 MG TAB PO SCH (08:37)
[2018-09-03] MEDS: AMYLASE PO SCH ×4 (08:37→20:11)
[2018-09-03] MEDS: LIPASE PO SCH ×4 (08:37→20:11)
[2018-09-03] MEDS: AMLODIPINE 5 MG TAB PO SCH (08:38)
[2018-09-03] MEDS: MAGNESIUM OXIDE 400 MG TAB PO SCH (08:38)
[2018-09-03] MEDS: METOPROLOL SUCCINATE 50 MG ER TAB PO SCH (08:39)
[2018-09-03] MEDS: THIAMINE 100 MG TAB PO SCH (08:39)
[2018-09-03] MEDS: LISINOPRIL 20 MG TAB PO SCH (08:40)
[2018-09-03] MEDS: NICOTINE 21 MG PATCH TD SCH (18:10)
[2018-09-04] MEDS: SODIUM CHLORIDE 0.9% FLUSH 10 ML SOL IV SCH ×2 (00:09→09:22)
[2018-09-04] MEDS: PANTOPRAZOLE SODIUM 40 MG ECT PO SCH (06:06)
[2018-09-04] MEDS: OXYCODONE HYDROCHLORIDE 5 MG TAB PO PRN ×2 (08:01→15:11)
[2018-09-04 08:03] LABS: ALBUMIN 2.1 gm/dl (3.4-5.0); BILIRUBIN,TOTAL 0.6 mg/dl (0.2-1.0); CALCIUM 8.3 mg/dl (8.5-10.1); CREATININE 0.88 mg/dl (0.60-1.00); CRP INFLAMMATORY 5.91 mg/dl (0.00-0.33); POTASSIUM 4.4 mMol/L (3.5-5.1); TOTAL PROTEIN 5.3 gm/dl (6.4-8.2)
[2018-09-04] MEDS: FOLIC ACID 1 MG TAB PO SCH (09:19)
[2018-09-04] MEDS: MAGNESIUM OXIDE 400 MG TAB PO SCH (09:20)
[2018-09-04] MEDS: POTASSIUM CHLORIDE 10 MEQ TER PO SCH (09:20)
[2018-09-04] MEDS: AMLODIPINE 5 MG TAB PO SCH (09:21)
[2018-09-04] MEDS: METOPROLOL SUCCINATE 50 MG ER TAB PO SCH (09:23)
[2018-09-04] MEDS: LISINOPRIL 20 MG TAB PO SCH (09:23)
[2018-09-04] MEDS: THIAMINE 100 MG TAB PO SCH (09:23)
[2018-09-04 10:27] LABS: BASOPHILS % (AUTO) 2 % (0-3); EOSINOPHILS % (AUTO) 4 % (0-9); HEMATOCRIT 30 % (35-47); HEMOGLOBIN 9.7 gm/dl (12.0-15.5); LYMPHOCYTES % (AUTO) 16.9 % (10-50); MEAN CORPUSCULAR HEMOGLOBIN 32.2 pg (27.0-32.0); MEAN CORPUSCULAR HGB CONC 31.7 gm/dl (32.0-36.0); MONOCYTES % (AUTO) 14.3 % (0-12); NEUTROPHILS % (AUTO) 62.6 % (37-80)
[2018-09-04 10:28] LABS: MEAN CORPUSCULAR VOLUME 102 fL (81-99)
[2018-09-04] MEDS ORDERED: ACETAMINOPHEN 500 MG 500 MG TAB PO PRN (11:34)
[2018-09-04] MEDS: LIPASE PO SCH ×2 (13:39)
[2018-09-04] MEDS: PROTEASE PO SCH ×2 (13:39)
[2018-09-04] MEDS: AMYLASE PO SCH ×2 (13:39)
[2018-09-04] MEDS: ALBUTEROL/IPRATROPIUM 1 VIAL SOL INH SCH ×2 (14:04→14:08)
[2018-09-04 14:07] VITALS: PULSE 70; RESP 22; O2SAT 97
[2018-09-04 15:39] VITALS: BP 120/80; TEMP 98.7
[2018-09-04] MEDS ORDERED: ONDANSETRON HCL 4 MG/2 ML SOL IV PRN (16:07)
[2018-09-04] MEDS ORDERED: HYDROMORPHONE HCL 2 MG/ML SOL IV PRN (16:07)
[2018-09-04] MEDS ORDERED: LACTATED RINGERS 1,000 ML IV SCH (16:15)
[2018-09-04] MEDS: NICOTINE 21 MG PATCH TD SCH (16:30)
== END 2018-09-04 16:35 | disposition short-term general hospital (02) | DRG 438 ==
LOC: ED 19:33 → ACUTE CARE 21:51
PROVIDERS: ADMIT Emergency Medicine; ATTEND Emergency Medicine
PROC: F01ZBZZ Bed Mobility Assessment (ICD-10-PCS; principal; 2018-08-30)
PROC: F01L5ZZ Range of Motion and Joint Integrity Assessment of Musculoskeletal System - Lower Back / Lower Extremity (ICD-10-PCS; 2018-08-30)
DX: K85.90 Acute pancreatitis without necrosis or infection, unspecified (principal); J69.0 Pneumonitis due to inhalation of food and vomit; N39.0 Urinary tract infection, site not specified; K85.20 Alcohol induced acute pancreatitis without necrosis or infection; R11.0 Nausea; R10.12 Left upper quadrant pain; R05 Cough; R06.00 Dyspnea, unspecified; Z72.89 Other problems related to lifestyle; Y90.8 Blood alcohol level of 240 mg/100 ml or more; B96.20 Unspecified Escherichia coli [E. coli] as the cause of diseases classified elsewhere
CPT/HCPCS: 36415; 71045; 74170; 74177; 80048; 80053; 80307; 81001; 82150; 85025; 87077; 87088; 87186; 94640; 94762; 96365; 96374; 96375; 99222; 99232; 99238; 99285; J0456; J0696; J1170; J1650; J1885; J2060; J2270; J2405; J2930; J7613; Q9967; A9270; A9270-GY

== ENCOUNTER 2018-09-15 09:07 | Emergency (ER) | payer OTHER ==
[2018-09-15] MEDS ORDERED: FENTANYL 100MCG/2ML SOL ONE (09:23)
[2018-09-15] MEDS ORDERED: DIPHENHYDRAMINE 50 MG/ML SOL ONE (09:24)
[2018-09-15] MEDS ORDERED: FENTANYL 100MCG/2ML SOL IV ONE (09:27)
[2018-09-15] MEDS ORDERED: DIPHENHYDRAMINE 50 MG/ML SOL IV ONE (09:27)
[2018-09-15 09:45] LABS: BASOPHILS % (AUTO) 1 % (0-3); EOSINOPHILS % (AUTO) 3 % (0-9); HEMATOCRIT 36 % (35-47); HEMOGLOBIN 11.1 gm/dl (12.0-15.5); LYMPHOCYTES % (AUTO) 15.4 % (10-50); MEAN CORPUSCULAR HGB CONC 31.2 gm/dl (32.0-36.0); MONOCYTES % (AUTO) 5.9 % (0-12); NEUTROPHILS % (AUTO) 74.8 % (37-80)
[2018-09-15 09:49] LABS: MEAN CORPUSCULAR VOLUME 99 fL (81-99)
[2018-09-15 09:59] LABS: BILIRUBIN,TOTAL 0.2 mg/dl (0.2-1.0); CALCIUM 8.2 mg/dl (8.5-10.1); CARBON DIOXIDE 32.7 mEq/L (21-32); CREATININE 0.91 mg/dl (0.60-1.00); CRP INFLAMMATORY 4.56 mg/dl (0.00-0.33); POTASSIUM 3.6 mMol/L (3.5-5.1); TOTAL PROTEIN 5.5 gm/dl (6.4-8.2)
[2018-09-15] MEDS ORDERED: SODIUM CHLORIDE 0.9% FLUSH 10 ML SOL IV PRN (11:14)
[2018-09-15 11:56] LABS: APPEARANCE,URINE Slightly Cloudy; BILIRUBIN,URINE NEGATIVE (NEGATIVE); COLOR,URINE Dark yellow; GLUCOSE, URINE (UA) NEGATIVE (NEGATIVE); KETONES,URINE TRACE (NEGATIVE); LEUKOCYTE ESTERASE ,URINE TRACE (NEGATIVE); NITRATE,URINE NEGATIVE (NEGATIVE); OCCULT BLOOD,URINE 2+ (NEG-TRACE); PH,URINE 5.5; UROBILINOGEN,URINE 0.2 (0.2-1.0 EU)
[2018-09-15 12:19] LABS: BACTERIA 1+ (< 1+); CRYSTALS NEGATIVE (0-3 AVE/HPF)
[2018-09-15 12:43] VITALS: TEMP 97.5
[2018-09-15] MEDS ORDERED: CEFTRIAXONE 1 GM PDS 1 GM in SODIUM CHLORIDE 0.9% 50 ML 50 ML IV ONE (13:26)
[2018-09-15 13:33] VITALS: BP 137/97; PULSE 72; RESP 14; O2SAT 96
[2018-09-15] MEDS ORDERED: CEFTRIAXONE 1 GM PDS ONE (13:52)
== END 2018-09-15 14:19 | disposition short-term general hospital (02) | DRG 440 ==
LOC: ED 09:07
DX: K85.22 Alcohol induced acute pancreatitis with infected necrosis (principal)
CPT/HCPCS: 36415; 74177; 80053; 81001; 85025; 87040; 87088; 96365; 96374; 96375; 99284; 99285; J0696; J1200; J3010; Q9967

== ENCOUNTER 2018-10-05 10:08 | Emergency (ER) | payer OTHER ==
[2018-10-05] MEDS ORDERED: ONDANSETRON HCL 4 MG/2 ML SOL IV ONE (10:28)
[2018-10-05] MEDS ORDERED: ONDANSETRON HCL 4 MG/2 ML SOL ONE (10:32)
[2018-10-05 10:36] LABS: BASOPHILS % (AUTO) 1 % (0-3); EOSINOPHILS % (AUTO) 2 % (0-9); HEMATOCRIT 33 % (35-47); HEMOGLOBIN 10.6 gm/dl (12.0-15.5); LYMPHOCYTES % (AUTO) 13.9 % (10-50); MEAN CORPUSCULAR HEMOGLOBIN 31.1 pg (27.0-32.0); MEAN CORPUSCULAR VOLUME 97 fL (81-99); MONOCYTES % (AUTO) 6.8 % (0-12); NEUTROPHILS % (AUTO) 76.4 % (37-80)
[2018-10-05] MEDS: SODIUM CHLORIDE 0.9% FLUSH 10 ML SOL IV PRN ×2 (10:36→11:05)
[2018-10-05 10:49] LABS: ALBUMIN 1.5 gm/dl (3.4-5.0); BILIRUBIN,TOTAL 0.4 mg/dl (0.2-1.0); CARBON DIOXIDE 27.6 mEq/L (21-32); CREATININE 1.03 mg/dl (0.60-1.00); POTASSIUM 4.3 mMol/L (3.5-5.1); TOTAL PROTEIN 5.4 gm/dl (6.4-8.2); TROP I 0.019 ng/ml (0.000-0.056)
[2018-10-05] MEDS ORDERED: KETOROLAC TROMETHAMINE 30 MG/ML SOL IV ONE (10:52)
[2018-10-05] MEDS ORDERED: KETOROLAC TROMETHAMINE 30 MG/ML SOL ONE (10:56)
[2018-10-05 10:57] LABS: INR 1.35 (0.86-1.12)
[2018-10-05 12:54] VITALS: BP 132/80; PULSE 59; RESP 14; TEMP 97.6; O2SAT 98
== END 2018-10-05 12:43 | disposition home or self-care (01) | DRG 313 ==
LOC: ED 10:08
DX: R07.89 Other chest pain (principal); S62.396A Other fracture of fifth metacarpal bone, right hand, initial encounter for closed fracture; W19.XXXA Unspecified fall, initial encounter; Y93.9 Activity, unspecified; Y92.9 Unspecified place or not applicable; Y99.9 Unspecified external cause status
CPT/HCPCS: 29125; 71045; 73130; 73620; 80053; 84484; 85025; 85610; 93005; 96374; 96375; 99284; 99285; J1885; J2405

== ENCOUNTER 2018-10-10 11:25 | Emergency (ER) | payer OTHER ==
[2018-10-10] MEDS ORDERED: ONDANSETRON HCL 4 MG/2 ML SOL IV ONE (11:31)
[2018-10-10] MEDS ORDERED: HYDROMORPHONE HCL 2 MG/ML SOL IV ONE ×2 (11:32→13:33)
[2018-10-10 11:47] LABS: BASOPHILS % (AUTO) 0 % (0-3); EOSINOPHILS % (AUTO) 1 % (0-9); HEMATOCRIT 31 % (35-47); LYMPHOCYTES % (AUTO) 11.1 % (10-50); MEAN CORPUSCULAR HEMOGLOBIN 30.4 pg (27.0-32.0); MEAN CORPUSCULAR HGB CONC 32.1 gm/dl (32.0-36.0); MEAN CORPUSCULAR VOLUME 95 fL (81-99); MONOCYTES % (AUTO) 5.6 % (0-12); NEUTROPHILS % (AUTO) 82.4 % (37-80)
[2018-10-10] MEDS ORDERED: ONDANSETRON HCL 4 MG/2 ML SOL ONE (11:48)
[2018-10-10] MEDS ORDERED: HYDROMORPHONE 1 MG/ML SYRINGE ONE ×2 (11:48→13:33)
[2018-10-10] MEDS ORDERED: HYDROMORPHONE 1 MG/ML SYRINGE IV ONE (11:50)
[2018-10-10] MEDS ORDERED: LACTATED RINGERS 1,000 ML IV ONE (11:57)
[2018-10-10] MEDS ORDERED: POTASSIUM CHLORIDE 2 MEQ/ML 20 MEQ, LIDOCAINE HCL 1% MDV 2 ML in SODIUM CHLORIDE 0.9% 2... IV ONE (11:58)
[2018-10-10 12:02] LABS: ALBUMIN 1.5 gm/dl (3.4-5.0); ALKALINE PHOSPHATASE 179 IU/L (46-116); ALT 11 IU/L (14-63); AMYLASE 163 IU/L (25-115); AST 19 IU/L (15-37); BILIRUBIN,TOTAL 0.6 mg/dl (0.2-1.0); BLOOD UREA NITROGEN 9 mg/dl (7-18); CALCIUM 7.9 mg/dl (8.5-10.1); CARBON DIOXIDE 34.8 mEq/L (21-32); CHLORIDE 89 mMol/L (98-107); CREATININE 0.94 mg/dl (0.60-1.00); GLUCOSE 141 mg/dl (74-106); TOTAL PROTEIN 6.5 gm/dl (6.4-8.2); TROP I < 0.017 ng/ml (0.000-0.056)
[2018-10-10 12:03] LABS: POTASSIUM 2.7 mMol/L (3.5-5.1); SODIUM 129 mMol/L (136-145)
[2018-10-10] MEDS ORDERED: POTASSIUM CHLORIDE 2 MEQ/ML SOL IV ONE (13:07)
[2018-10-10] MEDS ORDERED: LIDOCAINE HCL 1% MPF 30 SOL ONE (13:08)
[2018-10-10] MEDS ORDERED: PIPERACILLIN/TAZOBACT 3.375 GM 3.375 GM in SODIUM CHLORIDE 0.9% 100 ML 100 ML IV ONE (13:34)
[2018-10-10] MEDS ORDERED: VANCOMYCIN HCL 500 MG PDS 1,000 MG in SODIUM CHLORIDE 0.9% 250 ML 250 ML IV ONE (13:35)
[2018-10-10] MEDS ORDERED: VANCOMYCIN HYDROCHLORIDE 500 MG PDS IV ONE (14:10)
[2018-10-10] MEDS ORDERED: PIPERACILLIN/TAZOBACT 3.375 GM PDS IV ONE (14:12)
[2018-10-10 14:42] VITALS: TEMP 97.5
[2018-10-10 16:19] VITALS: BP 136/105; PULSE 82; RESP 18; O2SAT 96
== END 2018-10-10 16:08 | disposition short-term general hospital (02) | DRG 440 ==
LOC: ED 11:25
DX: K85.91 Acute pancreatitis with uninfected necrosis, unspecified (principal)
CPT/HCPCS: 36415; 74177; 80053; 82150; 84484; 85025; 93005; 96365; 96366; 96374; 96375; 99284; 99285; J2405; J2543; J3370; J3480; Q9967; J1170; J2001